=== PATIENT | male | born 1940 | race Caucasian/White ===

== ENCOUNTER → 2017-12-04 12:47 | Outpatient (CLI) | payer MEDICARE, SELFPAY ==
--- NOTE | 2017-12-04 12:52 | CT_ITS ---
STUDY: CT CHEST WITHOUT CONTRAST REASON FOR EXAM: Male, 77 years old. Lung nodule follow-up. History of prostate cancer, hypertension, diabetes, left nephrectomy. RADIATION DOSAGE (If Supplied By Facility): CTDIvol = ( 18.70 ) mGy, DLP = ( 691.51 ) mGycm TECHNIQUE: Transaxial imaging was performed without the administration of intravenous contrast material. Coronal and sagittal 2-D MPR Individualized dose optimization techniques were used for this CT. COMPARISON: 05/14/2016 CT chest FINDINGS: Supraclavicular: No acute process. Body wall soft tissues: No acute process. Upper abdomen: No acute process. Osseous structures: No acute process. Osteopenia, mild kyphoscoliosis and mild thoracic spondylosis. Mediastinum: No acute process. Heart: Normal heart size without effusion. Epicardial lipomatosis. Subendocardial fibrofatty scar of the anterior, and lateral warren of the left ventricle basilar to apex, consistent with old infarct. Three-vessel coronary atherosclerosis. 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 Unchanged compared to prior imaging of September 2015. Lungs: There is mild generalized hyperlucency without reilly features of centrilobular or paraseptal emphysema. On the left there are several pulmonary nodules, one of which contains a small keila of calcium in the basilar segment of the lower lobe, measuring 4.5 mm and consistent with old granulomas disease. The remainder of the nodules are solid or groundglass in density, the largest of these measuring 6 mm, 5 mm. On the right there is a part solid pulmonary nodule right lower lobe lateral basilar measuring 6.5 mm. Another right lower lobe posterior basilar in the sulcus measuring 12 mm, part solid. Right middle lobe subpleural measuring 9.3 mm. A few scattered tiny groundglass nodules are also present. There is no significant change in the pattern of pulmonary nodules compared to prior imaging of 09/28/2015. CT/Chest without Contrast IMPRESSION: Stable pattern of pulmonary nodules since prior imaging of September 2015. 2 years demonstrated stability without development of suspicious features. No specific further surveillance imaging is required. Please reference the 2017 Fleischner Society Criteria for follow-up of pulmonary nodules. Prominent coronary atherosclerosis, with aneurysmal ectasia of the RCA, stable compared to September 2015. Electronically Signed: Todd Castellanos, at 12:24 EDT Tel , Service support ,
== END ==
PROVIDERS: Family Provider Family Medicine; PCP Family Medicine; Visit Provider Family Medicine
DX: R91.1 Solitary pulmonary nodule (principal)
CPT/HCPCS: 71250

== ENCOUNTER 2017-12-16 13:50 | Outpatient (RCR) | payer MEDICARE, SELFPAY | END 2017-12-22 23:59 | LOC: DC 13:50 | PROVIDERS: Family Provider Family Medicine; PCP Family Medicine; Visit Provider Family Medicine | DX: E11.9 Type 2 diabetes mellitus without complications (principal); Z71.3 Dietary counseling and surveillance | CPT/HCPCS: G0108 ==

== ENCOUNTER 2018-01-19 09:30 | Outpatient (RCR) | payer MEDICARE, SELFPAY | END 2018-01-22 23:59 | LOC: DC 09:30 | PROVIDERS: Family Provider Family Medicine; PCP Family Medicine; Visit Provider Family Medicine | DX: E11.9 Type 2 diabetes mellitus without complications (principal); Z71.3 Dietary counseling and surveillance | CPT/HCPCS: 97802; 97803 ==

== ENCOUNTER 2018-02-08 11:00 | Outpatient (RCR) | payer MEDICARE, SELFPAY | END 2018-02-21 23:59 | LOC: DC 11:00 | PROVIDERS: Family Provider Family Medicine; PCP Family Medicine; Visit Provider Family Medicine | DX: E11.9 Type 2 diabetes mellitus without complications (principal); Z71.3 Dietary counseling and surveillance ==

== ENCOUNTER 2018-03-02 09:00 | Outpatient (RCR) | payer MEDICARE, SELFPAY | END 2018-03-24 23:59 | LOC: DC 09:00 | PROVIDERS: Family Provider Family Medicine; PCP Family Medicine; Visit Provider Family Medicine | DX: E11.9 Type 2 diabetes mellitus without complications (principal); Z71.3 Dietary counseling and surveillance | CPT/HCPCS: 97803 ==

== ENCOUNTER 2018-03-31 09:22 | Outpatient (RCR) | payer MEDICARE, SELFPAY | END 2018-04-23 23:59 | LOC: DC 09:22 | PROVIDERS: Family Provider Family Medicine; PCP Family Medicine; Visit Provider Family Medicine | DX: E11.9 Type 2 diabetes mellitus without complications (principal); Z71.3 Dietary counseling and surveillance | CPT/HCPCS: G0109 ==

== ENCOUNTER 2018-06-03 16:53 | Outpatient (RCR) | payer MEDICARE, SELFPAY | END 2018-06-24 23:59 | LOC: DC 16:53 | PROVIDERS: Family Provider Family Medicine; PCP Family Medicine; Visit Provider Family Medicine | DX: E11.9 Type 2 diabetes mellitus without complications (principal); Z71.3 Dietary counseling and surveillance | CPT/HCPCS: G0109 ==

== ENCOUNTER 2018-07-07 12:14 | Outpatient (RCR) | payer MEDICARE, SELFPAY | END 2018-07-07 23:59 | disposition home or self-care (01) | LOC: DC 12:14 | PROVIDERS: Family Provider Family Medicine; PCP Family Medicine; Visit Provider Family Medicine | DX: E11.9 Type 2 diabetes mellitus without complications (principal); Z71.3 Dietary counseling and surveillance | CPT/HCPCS: G0109 ==

== ENCOUNTER → 2019-06-13 15:43 | Outpatient (CLI) | payer MEDICARE, SELFPAY ==
[2019-06-03 10:31] VITALS: BMI 32.1
--- NOTE | 2019-06-13 15:44 | CT_ITS ---
STUDY: CT CHEST WITHOUT CONTRAST REASON FOR EXAM: Male, 79 years old. Right lower lobe nodule. Recent elevation in PSA. RADIATION DOSAGE (If Supplied By Facility): CTDIvol = ( 15.80 ) mGy, DLP = ( 521.02 ) mGycm TECHNIQUE: Transaxial imaging was performed without the administration of intravenous contrast material. Multiplanar coronal and sagittal images were reformatted. Individualized dose optimization techniques were used for this CT. COMPARISON: November 04, 2017. FINDINGS: The lungs are well-expanded. There is a nodule in the periphery of the right lower lobe measuring 0.6 x 0.7 x 0.6 cm which has a central lucency. This correlates with the nodule seen on the prior study. There is a second small nodule with central lucency along the pleural surface in the right middle lobe measuring 0.6 x 0.4 cm. Both appear unchanged from the prior study. Slightly lower in the right lower lobe is a 1.4 x 1.1 x 1.2 cm nodule with 2 areas of lucency. This again appears similar in size to prior study. There are no new masses. There are linear high density foci in the right middle lobe unchanged from prior study. There is no demonstrated pleural abnormality. Normal heart and pericardium. There are calcifications of the coronary arteries. 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 Normal mediastinum. Normal hilar regions. Normal unenhanced pulmonary arteries. Normal aorta arch and descending thoracic aorta. There are multi-level degenerative changes of the thoracic spine. There is no demonstrated abnormality of the visualized upper abdomen. CT/Chest without Contrast IMPRESSION: 1. Stable pattern of pulmonary nodules without increased in size. 2. No new findings are compared to prior study. Electronically Signed: Jose Aquino DO at 22:48 EST Tel [phone], Service support ,
== END ==
PROVIDERS: PCP Family Medicine; Referring Provider Internal Medicine Critical Care Medicine; Visit Provider Internal Medicine Critical Care Medicine
DX: R97.20 Elevated prostate specific antigen [PSA] (principal); R91.1 Solitary pulmonary nodule
CPT/HCPCS: 71250

== ENCOUNTER → 2019-06-23 08:47 | Outpatient (CLI) | payer MEDICARE, SELFPAY ==
[2019-06-03 10:31] VITALS: BMI 32.1
--- NOTE | 2019-06-24 10:30 | PFT ---
INTRODUCTION: The patient is a 79-year-old male that presents for pulmonary function studies secondary to a diagnosis of dyspnea. Respiratory therapy reports good patient effort. Bronchodilators were used during testing. INTERPRETATION: Forced expiration spirometry demonstrates no evidence of a large airways obstructive ventilatory defect. There was no significant response to aerosolized bronchodilators, based upon strict ATS criteria. Spirograms are of fair quality and plateau gradually indicating slow emptying of the lungs. Body plethysmography was performed and reveals lung volumes to be within normal limits. Diffusing capacity by single breath CO is also within normal limits. IMPRESSION: Normal spirometry, lung volumes and diffusing capacity.
== END ==
PROVIDERS: Family Provider Family Medicine; PCP Family Medicine; Referring Provider Internal Medicine Critical Care Medicine; Visit Provider Internal Medicine Critical Care Medicine
DX: R06.09 Other forms of dyspnea (principal)
CPT/HCPCS: 94060; 94726; 94729

== ENCOUNTER → 2020-01-02 09:14 | Outpatient (CLI) | payer MEDICARE, SELFPAY ==
[2019-08-02 08:32] VITALS: BMI 29.4
[2020-01-02 13:10] LABS: Vitamin B12 342 pg/mL (211-911)
[2020-01-02 13:21] LABS: ALB/GLOB Ratio 1.3 RATIO (0.9-2.4); AST(SGOT) 20 U/L (15-37); Alanine Aminotransfer ALT/SGPT 28 U/L (16-61); Albumin, Serum 4.1 g/dL (3.2-5.0); Alkaline Phosphatase 74 U/L (45-117); Anion Gap 4 (5-15); BUN 19 mg/dL (7-18); BUN/Creat Ratio 12.4 RATIO (10-20); Calcium,Total 10.5 mg/dL (8.5-10.1); Chloride 108 mmol/L (98-107); Cholesterol 150 mg/dL (200); Creatinine, Serum 1.53 mg/dL (0.70-1.30); EST Glomerular Filtration Rate 47 mL/min (>60); Est Glom Filt Rate - Afr Amer 57 mL/min (>60); Globulin 3.2 g/dL (2.2-4.2); Glucose 110 mg/dL (74-106); High Density Lipoprotein 44 mg/dL; Potassium 4.7 mmol/L (3.5-5.1); Protein, Total 7.3 g/dL (6.4-8.2); Sodium Level 140 mmol/L (136-145); Thyroid Stim Hormone (TSH) 1.86 uIU/mL (0.358-3.74); Triglycerides 131 mg/dL; Very Low Density Lipoprotein 26 mg/dL (5-40)
== END ==
PROVIDERS: PCP Family Medicine; Visit Provider Family Medicine
DX: E11.9 Type 2 diabetes mellitus without complications (principal)
CPT/HCPCS: 36415; 80053; 80061; 82607; 84403; 84443

== ENCOUNTER → 2020-11-22 10:08 | Outpatient (CLI) | payer MEDICARE, SELFPAY ==
[2019-08-02 08:32] VITALS: BMI 29.4
--- NOTE | 2020-11-22 10:11 | NM_ITS ---
CLINICAL: 80-year-old male with reported history of carcinoma of the prostate with elevation of the serum PSA level. WHOLE BODY 99m Tc MDP RADIONUCLIDE BONE SCINTIGRAPHY COMPARISON: None available FINDINGS: Following the intravenous administration of 26.1 mCi of 99m Tc MDP, whole body bone images reveal: 1. Increased radiopharmaceutical concentration is defined in the left proximal femur-left femoral neck. 2. Facilitated uptake is observed in the patellofemoral compartments of both knees, right posterior sacrum, first thoracic vertebra posteriorly on the left, the fourth and ninth thoracic vertebra posteriorly on the right. 3. The remaining skeletal structures are scintigraphically unremarkable with the right kidney and urinary bladder activity identified. The left kidney appears scintigraphically absent. NM/Bone Scan Whole Body IMPRESSION: 1. The increase in radiopharmaceutical concentration identified in the left proximal femur-femoral neck may represent trauma-fracture. Plain film radiography correlation is recommended. 2. Degenerative arthritis appears expressed in the bilateral knees, thoracic spine, right posterior sacrum. 3. There is no definitive typical scintigraphic evidence of multifocal axial skeletal metastatic disease. Electronically Signed: Todd Bhagat DO at 23:05 EDT Tel , Service support ,
== END ==
PROVIDERS: PCP Family Medicine; Referring Provider Radiology Radiation Oncology; Visit Provider Radiology Radiation Oncology
DX: R97.20 Elevated prostate specific antigen [PSA] (principal); Z85.46 Personal history of malignant neoplasm of prostate
CPT/HCPCS: 78306; A9503

== ENCOUNTER → 2020-11-27 11:37 | Outpatient (CLI) | payer MEDICARE, SELFPAY ==
[2019-08-02 08:32] VITALS: BMI 29.4
--- NOTE | 2020-11-27 11:44 | RAD_ITS ---
STUDY: X-RAY - LEFT FEMUR REASON FOR STUDY: Male, 80 years old. ABNORMAL bone scan FINDINGS TECHNIQUE: 4 view(s) of the femur. COMPARISON: None. FINDINGS: Normal visualized femur. Nondisplaced transverse fracture of the patella. 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 Clinical correlation is recommended. Metallic radiation seeds are seen within the prostate. 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 Electronically Signed: Magdaleno Lo MD at 15:41 EDT , Service support ,
== END ==
PROVIDERS: PCP Family Medicine; Referring Provider Radiology Radiation Oncology; Visit Provider Radiology Radiation Oncology
DX: R93.6 Abnormal findings on diagnostic imaging of limbs (principal); Z85.46 Personal history of malignant neoplasm of prostate
CPT/HCPCS: 73552

== ENCOUNTER → 2021-01-22 13:52 | Outpatient (CLI) | payer MEDICARE, SELFPAY ==
--- NOTE | 2021-01-22 13:30 | PET_ITS ---
EXAMINATION: 18F Fluciclovine PET/CT CLINICAL HISTORY: A 80-year-old male with reported history of carcinoma of the prostate presenting for restaging examination. COMPARISON EXAMINATION: Whole body bone scintigraphy report dated 11/22/20 PROCEDURE: The patient received an intravenous bolus injection of 10.54 mCi of Axumin (fluciclovine F-18) via the right hand, on the imaging table with the patient in the supine position followed by an intravenous normal saline flush. The patient in the supine position with arms above the head, CT scan for attenuation correction was performed immediately following the bolus injection and left up for 1-2 minutes. The PET scan acquisition was begun within 3-5 minutes following injection from mid thigh to the base of the skull. The total scan time was registered between 20-30 minutes. Axumin (fluciclovine F-18) injection is indicated for positron emission tomography PET imaging in men with suspected prostate cancer recurrence based on elevation of the serum prostatic surface antigen (PSA) levels following prior treatment intervention. HEIGHT: 70 inches. WEIGHT: 177 lbs. LIVER BLOOD POOL SUV: 7.9 BLOOD POOL: 1.0 BONE MARROW: 1.9 INDEX LESION SIZE SUV INTERPRETATION Right hemipelvis soft tissue nodule 34.7-mm (frame 65) 3.6 > bone marrow ref. Fulfills quantitative criteria for viable neoplasm FINDINGS: Head/Neck: There is no evidence of abnormal increased radiopharmaceutical concentration within the cranial vault. Symmetric uptake is defined in the bilateral parotid space. CHEST: There is no evidence of abnormal increased 18F fluciclovine uptake within the context of the right and left hemithorax pulmonary parenchyma, mediastinal structures. Pertinent chest CT findings are as follows. Coronary arterial calcification is observed. Atherosclerotic calcification is noted in the thoracic aorta. The maximal axial diameter of the ascending thoracic aorta is 43.5-mm. Subcentimeter bilateral axillary and scattered mediastinal soft tissue densities are ametabolic. The cavitated density observed in the right lower posteromedial lung field reveals no evidence of increased tracer uptake. Abdomen/Pelvis: A nodular focus of increased radiopharmaceutical concentration is observed in the right lower posterior pelvic mesentery corresponding to soft tissue nodule-mass formation on review of CT of the pelvis dated 01/22/21. The calculated maximal standard uptake value is 3.6, greater than bone marrow reference. The maximal axial diameter of the corresponding metabolic, morphologic abnormality on review of CT of the pelvis dated 01/22/21 is 34.7-mm (transverse). Normal physiologic distribution of the radiopharmaceutical is apparent in the hepatic and splenic parenchyma, uncinate process-pancreatic head-tail, right renal unit, and visualized intestinal tract. Review of CT of the abdomen pelvis demonstrates the following. There is atherosclerotic calcification defined in the abdominal aorta without evidence of dilatation-aneurysm formation. Pelvic arterial calcification is observed. Cholelithiasis is encountered. The left kidney is metabolically, morphologically absent. Surgical clips appear evident in the region of the left renal bed. Seed placement is defined in the lower pelvis-prostate bed without evidence of quantitatively significant increased radiopharmaceutical concentration. A fat containing left inguinal hernia is noted. Right and left inguinal soft tissue densities with fatty hilus demonstrate no evidence of quantitatively significant increased tracer uptake. Skeletal: Degenerative changes are noted in the cervical, thoracic and lumbar spine without evidence of increased radiopharmaceutical concentration. There is no evidence of sclerotic, mixed sclerotic-lytic and/or lytic changes noted on review of the skeletal structures without evidence of increased radiopharmaceutical concentration. PET/PET/CT Tumor Base -Thigh Subs IMPRESSION: 1. 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 2. Increased 18F fluciclovine uptake observed in the right hemipelvic mesentery corresponding to a soft tissue nodule is consistent with viable neoplasia. (Marco et al, Journal of Nuclear Medicine 55:1986, 2014). Electronic Signature Todd Bhagat D.O. Electronically Signed: Todd Bhagat DO at 22:21 EDT Tel , Service support ,
== END ==
PROVIDERS: PCP Family Medicine; Referring Provider Radiology Radiation Oncology; Visit Provider Radiology Radiation Oncology
DX: C61 Malignant neoplasm of prostate (principal); R97.20 Elevated prostate specific antigen [PSA]
CPT/HCPCS: 78815; A9588

== ENCOUNTER → 2021-02-08 11:08 | Outpatient (CLI) | payer MEDICARE, SELFPAY ==
[2021-02-08 12:14] LABS: Absolute Lymphocyte Count 1.93 X10^3/uL (0.83-4.51); Absolute Neutrophil Count 5.6 X10^3/uL (2.0-7.7); Basophil# 0.03 X10^3/uL; Basophil% 0.4 % (0-1); Eosinophil# 0.11 X10^3/uL; Eosinophils% 1.3 % (0-5); Hematocrit 49.7 % (40-54); Hemoglobin 15.8 g/dL (13.0-16.5); Lymphocyte # 1.93 X10^3/ul (0.83-4.51); Lymphocyte % 22.7 % (19-41); Mean Corp Hgb Conc 31.8 g/dL (32-36); Mean Corpuscular Hgb 29.1 pg (27.0-32.0); Mean Corpuscular Volume 91.5 fL (80-94); Mean Platelet Vol. 11.5 fl (6.2-12.0); Monocyte# 0.78 X10^3/uL; Monocyte% 9.2 % (0-10); NRBC Flagged by Analyzer 0 % (0-5); Neutrophil # 5.62 X10^3/uL (2.7-7.7); Neutrophil % 65.9 % (47-70); Platelet Count 190 K/mm3 (150-450); RBC Distribution Width CV 15.1 % (11.6-14.6); RBC Distribution Width SD 50.4 fl (35.1-43.9); Red Blood Count 5.43 M/mm3 (4.6-6.2); White Blood Count 8.5 K/mm3 (4.4-11.0)
[2021-02-08 12:27] LABS: Creatinine, Serum 1.17 mg/dL (0.70-1.30); EST Glomerular Filtration Rate 64 mL/min (>60); Est Glom Filt Rate - Afr Amer 77 mL/min (>60)
== END ==
PROVIDERS: PCP Family Medicine; Referring Provider Radiology Radiation Oncology; Visit Provider Radiology Radiation Oncology
DX: Z85.46 Personal history of malignant neoplasm of prostate (principal)
CPT/HCPCS: 36415; 82565; 85025

== ENCOUNTER → 2021-02-11 14:22 | Outpatient (CLI) | payer MEDICARE, SELFPAY ==
--- NOTE | 2021-02-11 14:35 | CT_ITS ---
HISTORY: PROSTATE CA. TECHNIQUE: Helically acquired images were obtained of the pelvis. A radiation dose optimization technique was used for this scan. IV Contrast dosage and agent: None. Oral contrast: Present. # of images incl. paperwork: [phone]. COMPARISON: PET/CT 01/22/2021. FINDINGS: BOWEL: Appendix nondilated. Oral contrast noted in the small bowel. PERITONEUM: No significant free fluid. Aortoiliac surgical clips again noted. PELVIC ORGANS: 2.8 x 3.1 cm slightly lobulated and irregular mass in the right posterolateral pelvic mesentery contiguous with the right seminal vesicle again seen. Prostate radiotherapy seeds noted. BONES: Degenerative changes. No destructive osseous lesion. CT/CT Pelvis w/o Cont/Therapy IMPRESSION: CT pelvis for treatment planning. Redemonstration of right pelvic soft tissue mass. Individualized dose optimization techniques were used for this CT. at 1142 Reported and signed by: Brianne Woods MD Electronically Signed: Brianne Woods MD at 11:40 EDT Tel , Service support ,
== END ==
PROVIDERS: PCP Family Medicine; Referring Provider Radiology Radiation Oncology; Visit Provider Radiology Radiation Oncology
DX: C61 Malignant neoplasm of prostate (principal); C77.5 Secondary and unspecified malignant neoplasm of intrapelvic lymph nodes
CPT/HCPCS: 51600; 72192

== ENCOUNTER → 2021-05-06 07:01 | Outpatient (CLI) | payer MEDICARE, SELFPAY ==
[2021-05-06 10:41] LABS: PSA,Total- Diagnostic 0.12 ng/mL (0.0-4.0)
[2021-05-06 10:45] LABS: AST(SGOT) 21 U/L (15-37); Alanine Aminotransfer ALT/SGPT 33 U/L (16-61); Albumin, Serum 3.5 g/dL (3.2-5.0); Alkaline Phosphatase 96 U/L (45-117); Anion Gap 8 (5-15); BUN 16 mg/dL (7-18); Calcium,Total 9.9 mg/dL (8.5-10.1); Chloride 104 mmol/L (98-107); Cholesterol 208 mg/dL (200); Creatinine, Serum 1.23 mg/dL (0.70-1.30); EST Glomerular Filtration Rate 60 mL/min (>60); Est Glom Filt Rate - Afr Amer 73 mL/min (>60); Globulin 3.5 g/dL (2.2-4.2); Glucose 156 mg/dL (74-106); High Density Lipoprotein 44 mg/dL; Potassium 4.2 mmol/L (3.5-5.1); Sodium Level 140 mmol/L (136-145); Thyroid Stim Hormone (TSH) 3.08 uIU/mL (0.358-3.74); Triglycerides 444 mg/dL
[2021-05-06 10:48] LABS: Vitamin B12 987 pg/mL (211-911); Vitamin D,25 Hydroxy 40.1 ng/mL
== END ==
PROVIDERS: PCP Family Medicine; Referring Provider Urology; Visit Provider Urology
DX: C61 Malignant neoplasm of prostate (principal); E55.9 Vitamin D deficiency, unspecified; E11.9 Type 2 diabetes mellitus without complications
CPT/HCPCS: 36415; 80053; 80061; 82306; 82607; 84153; 84443

== ENCOUNTER → 2021-10-24 | Outpatient (CLI) | payer MEDICARE, SELFPAY ==
[2021-10-24 15:53] LABS: PSA,Total- Diagnostic 0.02 ng/mL (0.0-4.0)
== END | disposition home or self-care (01) ==
LOC: BIMLAB 13:30
PROVIDERS: PCP Family Medicine; Visit Provider Urology
DX: C61 Malignant neoplasm of prostate (principal)
CPT/HCPCS: 36415; 84153

== ENCOUNTER → 2021-11-07 | Outpatient (CLI) | payer MEDICARE, SELFPAY | END | disposition home or self-care (01) | LOC: LABSPEC 16:30 | PROVIDERS: PCP Family Medicine; Visit Provider Urology | DX: N30.00 Acute cystitis without hematuria (principal) | CPT/HCPCS: 87077; 87086; 87088; 87186 ==

== ENCOUNTER → 2022-04-28 | Outpatient (CLI) | payer MEDICARE, SELFPAY ==
[2022-04-28 13:03] LABS: Vitamin B12 718 pg/mL (211-911); Vitamin D,25 Hydroxy 45.9 ng/mL
[2022-04-28 13:09] LABS: ALB/GLOB Ratio 1.2 RATIO (0.9-2.4); AST(SGOT) 13 U/L (15-37); Alanine Aminotransfer ALT/SGPT 23 U/L (16-61); Albumin, Serum 3.8 g/dL (3.2-5.0); Alkaline Phosphatase 87 U/L (45-117); Anion Gap 8 (5-15); BUN 15 mg/dL (7-18); BUN/Creat Ratio 12.1 RATIO (10-20); Chloride 106 mmol/L (98-107); Cholesterol 182 mg/dL (200); Creatinine, Serum 1.24 mg/dL (0.70-1.30); EST Glomerular Filtration Rate 60 mL/min (>60); Est Glom Filt Rate - Afr Amer 72 mL/min (>60); Globulin 3.2 g/dL (2.2-4.2); Glucose 126 mg/dL (74-106); High Density Lipoprotein 47 mg/dL; PSA,Total- Diagnostic 0.11 ng/mL (0.0-4.0); Potassium 3.7 mmol/L (3.5-5.1); Sodium Level 141 mmol/L (136-145); Thyroid Stim Hormone (TSH) 2.81 uIU/mL (0.358-3.74); Triglycerides 280 mg/dL; Very Low Density Lipoprotein 56 mg/dL (5-40)
== END | disposition home or self-care (01) ==
LOC: BIMLAB 10:19
PROVIDERS: PCP Family Medicine; Referring Provider Urology; Visit Provider Urology
DX: C61 Malignant neoplasm of prostate (principal); E11.9 Type 2 diabetes mellitus without complications; E55.9 Vitamin D deficiency, unspecified
CPT/HCPCS: 80053; 80061; 82306; 82607; 84153; 84443

== ENCOUNTER → 2022-05-12 | Outpatient (CLI) | payer MEDICARE, SELFPAY ==
[2022-05-12 16:18] LABS: Mucous, Urine 0 SEEN /hpf (<or=2+); Squamous Epithelial Cells - UA 0 SEEN /hpf (0-5)
[2022-05-12 17:08] LABS: Color, Urine Amber (Yellow); Glucose, Dipstick Normal (Normal); Ketone-Dipstick Negative (Negative); Leukocyte Esterase-Dipstick 100 /ul (Negative); Nitrite-Dipstick Negative (Negative); Occult Blood-Urine 250 /ul (Negative); Protein-Dipstick 500 mg/dl (Negative); Specific Gravity, Urine 1.015 (1.002-1.030); Urine Bilirubin Dipstick Negative (Negative); Urine Clarity Cloudy (Clear); Urine Urobilinogen 1 mg/dl (Normal)
[2022-05-12 17:35] LABS: Red Blood Cells-Urine > 100 SEEN /hpf (0-5)
[2022-05-12 17:36] LABS: Bacteria RARE /hpf (None Seen); White Blood Cells 10-25 SEEN /hpf (0-5)
== END | disposition home or self-care (01) ==
LOC: LABSPEC 16:07
PROVIDERS: PCP Family Medicine; Visit Provider Family Medicine
DX: N39.0 Urinary tract infection, site not specified (principal)
CPT/HCPCS: 81001; 87086; 87088

== ENCOUNTER → 2022-05-30 | Outpatient (CLI) | payer MEDICARE, SELFPAY ==
--- NOTE | 2022-05-30 13:53 | CT_ITS ---
STUDY: CT ABDOMEN AND PELVIS WITHOUT CONTRAST REASON FOR EXAM: Male, 82 years old. Hematuria. History of prostate cancer. Prior left nephrectomy. RADIATION DOSAGE (If Supplied By Facility): CTDIvol = ( 14.32 ) mGy, DLP = ( 653.66 ) mGycm TECHNIQUE: Transaxial images were obtained from the dome of the diaphragm to the symphysis pubis without oral contrast, and without intravenous contrast. Sagittal and coronal images were reconstructed. Individualized dose optimization techniques were used for this CT. COMPARISON: Comparison is made with prior CT scan the pelvis dated 02/11/2021. FINDINGS: Minimal increased markings at the right lung base suggestive of either linear atelectasis and/or scarring. Coronary artery calcification. There is a 4.17 x 4.5 cm subtle rounded hypodense mass in the anterior aspect of the right lobe of the liver. A neoplastic process should be ruled out. There are multiple small gallstones. Normal spleen. Normal pancreas. Normal bilateral adrenal glands. 1 cm cyst is seen in the lower pole of the right kidney. The patient is status post left nephrectomy. Normal visualized stomach. Normal small intestine. Normal colon. The appendix is visualized and appears normal. There is diffuse atherosclerotic calcification of the abdominal aorta and its major visceral branches, without a demonstrated aneurysm. There is evidence of prior surgical repair of the distal abdominal aorta and possible grafting. Normal inferior vena cava. Normal retroperitoneum. The bladder is contracted with mild degree of the bladder wall thickening. Metallic radiation seeds are seen within the prostate. The previously seen soft tissue mass in the right posterior-lateral pelvic mesentery has decreased in size. It presently measures 1.8 cm by Donnelly. Normal abdominal wall. There are mild degenerative changes of the visualized lumbar spine. CT/Abdomen/Pelvis without Cont IMPRESSION: 4.1 cm by 4.5 cm rounded hypodense mass anterior aspect of right lobe of liver. A neoplastic process should BE ruled out. Small gallstones. Radiation seeds are seen within the prostate. Electronically Signed: Magdaleno Lo MD at 15:12 EST ,
== END | disposition home or self-care (01) ==
PROVIDERS: PCP Family Medicine; Visit Provider Family Medicine
DX: K80.20 Calculus of gallbladder without cholecystitis without obstruction (principal); I70.0 Atherosclerosis of aorta; Z90.5 Acquired absence of kidney; R19.00 Intra-abdominal and pelvic swelling, mass and lump, unspecified site; R16.0 Hepatomegaly, not elsewhere classified; I25.10 Atherosclerotic heart disease of native coronary artery without angina pectoris; N28.1 Cyst of kidney, acquired; R93.41 Abnormal radiologic findings on diagnostic imaging of renal pelvis, ureter, or bladder; R31.9 Hematuria, unspecified
CPT/HCPCS: 74176

== ENCOUNTER → 2022-06-26 | Outpatient (CLI) | payer MEDICARE, SELFPAY ==
[2022-06-26] VITALS (10 sets, daily range): BP systolic 116–161; BP diastolic 69–102; PULSE 54–64; RESP 11–21; TEMP 36.2; O2SAT 93–100; BMI 25.2
--- NOTE | 2022-06-26 | ASPIGT_PTH ---
PATIENT: ROSALBA WASHINGTON LOC: CT U#:[id number] AGE/SX: 82/M ROOM: RE06/26/[address]: Dr. Anmol Velazquez MD : 1940 BED: DIS: 06/26/2022 SPEC #: [id number] RECD: 06/26/22 11:10 STATUS: [place] #: [id number] OLENA: 06/26/22 00:[address]: Anmol Velazquez DEPT: SURGICAL PATHOLOGY RECD BY: Shaheen Mcintyre Tissues: Liver, NOS Procedures: PAS with Diastase (control) FNA Specimen Adequacy Trichrome (control) Special Stain Group II PAS Stain (control) Surgery Specimen Level V Retic (control) Iron Stain (control) Imprint (control) HEADER OPERATION: Liver mass, CT-guided biopsy PRE-OP DIAGNOSIS: Liver mass TISSUE SUBMITTED: Right lobe medial liver 18-gauge core x8 MICROSCOPIC DIAGNOSIS Right lobe liver, medial, CT-guided core biopsy: Liver parenchymal tissue, negative for malignancy. See comment. SJ:ramya 06/27/2022 COMMENT The specimen is evaluated at the time of biopsy by Dr. Messer. Immediate Evaluation: Set 1 (two touch imprints) - Hepatocytes noted, negative for malignant cells. Set 2 (two touch imprints) - Hepatocytes noted, negative for malignant cells. The specimen shows liver parenchymal tissue with focal area of hemorrhage, dilated sinusoids, glycogenation of nuclei and portal chronic inflammation. Correlation with clinical, radiologic findings and appropriate follow up are necessary. Case has been reviewed in consultation with Dr. Long who concurs with the above diagnosis. IDC:AM MICROSCOPIC DESCRIPTION Slides are reviewed. Reticulin stain show normal hepatic architecture. Iron stain shows absent iron. PAS and PASD stain do not show any abnormal accumulation of protein. Trichrome stain does not show any significant portal or periportal fibrosis. All stains are performed with appropriate matched controls. GROSS DESCRIPTION Received in fixative is one container labeled with the patient's name and designated liver, CT-guided core biopsy. The specimen consists of multiple elongated fragments of claros soft tissue that in aggregate measure 2.5 x 0.6 x 0.1 cm. The specimen is totally submitted in one cassette. Four touch imprints are prepared at the time of core biopsy. / ANNE:ramya 06/26/2022 TC:5 CPT: 03946, [id number], [id number], [id number] x5
--- NOTE | 2022-06-26 07:34 | CT_ITS ---
PROCEDURE: CT DIRECTED CORE LIVER BIOPSY INDICATION: Male, 82 years old. LIVER MASS PHYSICIAN: Dr. THIEN Martin CONSENT: Written informed consent was obtained having explained the risks, benefits and alternatives in detail with the patient who accepted the risks and agreed to proceed. Laboratory review and clinical assessment was performed. CONSCIOUS SEDATION PROTOCOL: The Drugs used were: 2 mg Versed, IV. The sedation time was: 20 minutes. Conscious sedation was started at 9:01 AM and terminated at 9:21 AM. The conscious sedation protocol was independently monitored by the department nurse. RADIATION DOSAGE (If Supplied By Facility): CTDIvol = ( 25 ) mGy, DLP = ( 715.26 ) mGycm Individualized dose optimization techniques were used for this CT. TECHNIQUE: Using CT image guidance with image documentation, a suitable location in the medial aspect of the right lobe of the liver was identified. Using an anterior approach, puncture of the liver was uneventful with an 18-gauge core needle system. 8, 18-gauge core samples were obtained, and submitted in formalin to the pathologist for further assessment. Followup CT scan revealed no distinct sequelae. CT/Biopsy/Inj or Needle Placement IMPRESSION: 1. CT directed core needle biopsy of the liver, using CT image guidance with image documentation as described. 2. Conscious Sedation protocol utilized with independent monitoring. Electronically Signed: Magdaleno Lo MD at 9:42 EST ,
[2022-06-26 08:21] LABS: Hematocrit 46.8 % (40-54); Hemoglobin 15.4 g/dL (13.0-16.5); Mean Corp Hgb Conc 32.9 g/dL (32-36); Mean Corpuscular Hgb 30.7 pg (27.0-32.0); Mean Corpuscular Volume 93.4 fL (80-94); Mean Platelet Vol. 11.1 fl (6.2-12.0); Platelet Count 180 K/mm3 (150-450); RBC Distribution Width CV 13.8 % (11.6-14.6); RBC Distribution Width SD 47.1 fl (35.1-43.9); Red Blood Count 5.01 M/mm3 (4.6-6.2); White Blood Count 6.7 K/mm3 (4.4-11.0)
[2022-06-26 08:34] LABS: International Normalized Ratio 1.1; Prothrombin Time (Protime)PT. 13.8 SECONDS (11.7-14.9)
[2022-06-26 08:35] LABS: Partial Thromboplast Time 28.5 Seconds (24.1-36.2)
[2022-06-26] MEDS: Midazolam 2 MG/2 ML Syringe IV (09:01)
[2022-06-26] MEDS: Lidocaine 2% (20 ml mdv) 20 ML Vial INFILT (09:12)
== END | disposition home or self-care (01) ==
PROVIDERS: PCP Family Medicine; Referring Provider Family Medicine; Visit Provider Family Medicine
DX: R16.0 Hepatomegaly, not elsewhere classified (principal)
CPT/HCPCS: 47000; 36415; 77012; 85027; 85610; 85730; 88172; 88305; 88307; 88313; 99156; J7050; A4216

== ENCOUNTER → 2022-09-05 | Outpatient (CLI) | payer MEDICARE, SELFPAY ==
[2022-09-05 13:24] LABS: Color, Urine Yellow (Yellow); Glucose, Dipstick Normal (Normal); Ketone-Dipstick Negative (Negative); Leukocyte Esterase-Dipstick 500 /ul (Negative); Nitrite-Dipstick Positive (Negative); Occult Blood-Urine 250 /ul (Negative); Protein-Dipstick 100 mg/dl (Negative); Urine Bilirubin Dipstick Negative (Negative); Urine Clarity Sl. Cloudy (Clear); Urine Urobilinogen Normal (Normal)
== END | disposition home or self-care (01) ==
LOC: LABSPEC 12:43
PROVIDERS: PCP Family Medicine; Referring Provider Family Medicine; Visit Provider Family Medicine
DX: N39.0 Urinary tract infection, site not specified (principal)
CPT/HCPCS: 81002; 87077; 87086; 87088; 87186

== ENCOUNTER → 2022-11-05 | Outpatient (CLI) | payer MEDICARE, SELFPAY ==
[2022-11-05 12:36] LABS: PSA,Total- Diagnostic 0.97 ng/mL (0.0-4.0)
== END | disposition home or self-care (01) ==
PROVIDERS: PCP Family Medicine; Referring Provider Urology; Visit Provider Urology
DX: C61 Malignant neoplasm of prostate (principal)
CPT/HCPCS: 36415; 84153

== ENCOUNTER → 2023-01-01 | Outpatient (CLI) | payer MEDICARE, SELFPAY ==
[2023-01-01 10:02] LABS: Absolute Lymphocyte Count 1.59 X10^3/uL (0.83-4.51); Absolute Neutrophil Count 3.8 X10^3/uL (2.0-7.7); Basophil# 0.03 X10^3/uL; Basophil% 0.5 % (0-1); Eosinophil# 0.11 X10^3/uL; Eosinophils% 1.8 % (0-5); Hematocrit 46.6 % (40-54); Hemoglobin 14.8 g/dL (13.0-16.5); Lymphocyte # 1.59 X10^3/ul (0.83-4.51); Lymphocyte % 25.4 % (19-41); Mean Corp Hgb Conc 31.8 g/dL (32-36); Mean Corpuscular Hgb 29.8 pg (27.0-32.0); Mean Corpuscular Volume 93.8 fL (80-94); Mean Platelet Vol. 11.7 fl (6.2-12.0); Monocyte# 0.65 X10^3/uL; Monocyte% 10.4 % (0-10); NRBC Flagged by Analyzer 0 % (0-5); Neutrophil # 3.84 X10^3/uL (2.7-7.7); Neutrophil % 61.4 % (47-70); Platelet Count 157 K/mm3 (150-450); RBC Distribution Width CV 14.6 % (11.6-14.6); RBC Distribution Width SD 50.4 fl (35.1-43.9); Red Blood Count 4.97 M/mm3 (4.6-6.2); White Blood Count 6.3 K/mm3 (4.4-11.0)
[2023-01-01 10:34] LABS: Vitamin B12 966 pg/mL (211-911); Vitamin D,25 Hydroxy 56.4 ng/mL
[2023-01-01 10:36] LABS: ALB/GLOB Ratio 1.1 RATIO (0.9-2.4); AST(SGOT) 17 U/L (15-37); Alanine Aminotransfer ALT/SGPT 23 U/L (16-61); Albumin, Serum 3.7 g/dL (3.2-5.0); Alkaline Phosphatase 92 U/L (45-117); Anion Gap 5 (5-15); BUN 21 mg/dL (7-18); Calcium,Total 9.9 mg/dL (8.5-10.1); Chloride 106 mmol/L (98-107); Cholesterol 166 mg/dL (200); Creatinine, Serum 1.31 mg/dL (0.70-1.30); EST Glomerular Filtration Rate 56 mL/min (>60); Est Glom Filt Rate - Afr Amer 67 mL/min (>60); Globulin 3.3 g/dL (2.2-4.2); Glucose 120 mg/dL (74-106); High Density Lipoprotein 48 mg/dL; Potassium 4.4 mmol/L (3.5-5.1); Sodium Level 139 mmol/L (136-145); Triglycerides 233 mg/dL; Very Low Density Lipoprotein 47 mg/dL (5-40)
== END | disposition home or self-care (01) ==
LOC: MFPLAB 08:36
PROVIDERS: PCP Family Medicine; Visit Provider Family Medicine
DX: E55.9 Vitamin D deficiency, unspecified (principal); E11.22 Type 2 diabetes mellitus with diabetic chronic kidney disease; E11.65 Type 2 diabetes mellitus with hyperglycemia; E53.8 Deficiency of other specified B group vitamins
CPT/HCPCS: 36415; 80053; 80061; 82306; 82607; 85025

== ENCOUNTER → 2023-04-28 | Outpatient (CLI) | payer MEDICARE, SELFPAY | END | disposition home or self-care (01) | LOC: BIMLAB 14:19 | PROVIDERS: PCP Family Medicine; Referring Provider Urology; Visit Provider Urology | DX: C61 Malignant neoplasm of prostate (principal) | CPT/HCPCS: 36415; 84153 ==

== ENCOUNTER → 2024-05-20 | Outpatient (CLI) | payer MEDICARE, SELFPAY ==
--- NOTE | 2024-05-20 08:17 | CT_ITS ---
EXAM: CT ABDOMEN WITH INTRAVENOUS CONTRAST CLINICAL INDICATION: fu liver lesion TECHNIQUE: Helically acquired images were obtained of the abdomen with intravenous contrast. This CT exam was performed using one or more of the following dose reduction techniques: automated exposure control, adjustment of the mA and/or kV according to patient size, and/or use of iterative reconstruction technique. CONTRAST: Oral and amp; IV Readi-CAT and amp; 100mL Isovue-300 COMPARISON: CT abdomen and pelvis, 05/30/2022. PET/CT, 01/22/2021. FINDINGS: LOWER THORAX: Right basilar pulmonary nodule measuring approximately 7 mm. Coronary artery calcifications and/or stents. No cardiomegaly. No significant pericardial effusion. LIVER: Heterogeneously enhancing left hepatic mass measures up to approximately 8 cm. GALLBLADDER AND BILE DUCTS: Cholelithiasis without secondary signs of cholecystitis. No intra- or extrahepatic biliary ductal dilation. PANCREAS: No significant abnormality. No focal cystic or solid mass. SPLEEN: No significant abnormality. Normal size without focal cystic or solid mass. ADRENALS: No significant abnormality. No nodules. KIDNEYS AND URETERS: Status post left nephrectomy. STOMACH AND BOWEL: No significant abnormality. No stomach or bowel distention. No focal inflammatory change. INTRAPERITONEAL SPACE: No significant abnormality. No ascites or other fluid collection. No free air. BONES/JOINTS: No significant abnormality. No suspicious lytic or blastic abnormality. SOFT TISSUES: No significant abnormality. No discrete abdominal wall hernia. VASCULATURE: Atherosclerosis of the aorta and its visualized branch vessels. LYMPH NODES: No enlarged lymph nodes. CT/Abdomen WITH IV Contrast IMPRESSION: 1. Heterogeneously enhancing left hepatic mass measures up to approximately 8 cm. This appears larger compared to the prior examination and is nonspecific. ACR White Paper guidelines (Madhuri, et al. JACR 2017; 14(11):4548-5727.) suggest the following. For patients with a low risk of malignancy, recommend hepatic MR. For patients with high risk of malignancy (known malignancy with a propensity to metastasize to the liver, cirrhosis, and/or other hepatic risk factors), recommend hepatic MR or core biopsy. 2. Cholelithiasis without secondary signs of cholecystitis. 3. Right basilar pulmonary nodule measuring approximately 7 mm. Associated bronchiectasis suggesting an inflammatory process or post infectious process. This is similar to the prior examination dated 05/30/2022. Fleischner Society Guidelines (MacMahon, et al. Radiology 2017; 284(1):228-43) suggest no follow-up is necessary for patients with a low or high risk of malignancy. 4. Status post left nephrectomy. Electronically Signed: Rick Nguyen DO at 10:11 EST ,
[2024-05-20 08:44] LABS: CREATININE FINGERSTICK 1.2 mg/dL (0.70-1.30); EGFR FINGERSTICK > 60.0000 mL/min (>60)
== END | disposition home or self-care (01) ==
PROVIDERS: PCP Family Medicine; Referring Provider Family Medicine; Visit Provider Family Medicine
DX: R16.0 Hepatomegaly, not elsewhere classified (principal)
CPT/HCPCS: 74160; Q9967

== ENCOUNTER → 2024-06-23 | Outpatient (CLI) | payer MEDICARE, SELFPAY ==
--- NOTE | 2024-06-23 07:23 | MRI_ITS ---
PROCEDURE: MRI ABD WITH AND W/O CONTRAST REASON FOR EXAM: Liver mass. TECHNIQUE: Multiplanar, multisequence MRI of the upper abdomen without and with intravenous gadolinium-based contrast. CONTRAST: 17 cc clear scan intravenous COMPARISON: CT abdomen May 20, 2024. CT abdomen without contrast May 2022 FINDINGS: Liver: Centered in hepatic segments 4A and 4B is a mass measuring 8 cm in transverse dimension by 6.3 cm in AP dimension by 8.2 cm in craniocaudal dimension. The mass is nearly isointense to liver (minimally hyperintense relative to hepatic parenchyma) and has a hypointense central scar. Following gadolinium infusion, there is mild heterogeneous enhancement on arterial phase with non enhancement of the central scar. On subsequent phases, there is more avid enhancement throughout this mass. The central scar enhances on the last 2 sequences. On the last sequence the mass is near isointense to liver. There is no extension beyond the liver capsule. The mass previously measured up to 4.5 cm in May 2022. No tumor in the portal veins or right hepatic lobe. No cirrhotic morphology. Biliary: A few tiny stones with no signs of cholecystitis. No biliary dilatation. Pancreas: No mass or ductal dilation. Spleen: Normal size, signal intensities and contrast enhancement. Adrenals: No evidence of adrenal mass. Kidneys: Absent left kidney. The right kidney is unremarkable. Peritoneum / Retroperitoneum: No ascites. Lymph Nodes: No upper abdominal lymphadenopathy. Major Vessels: Postop changes of the aorta with plaque noted. No aneurysm. Bones: No focal marrow lesions are identified. MRI/MRI Abd WITH and W/O Contrast IMPRESSION: 8.2 cm solid mass in hepatic segments 4A and 4B, significantly increased in si ze from May 2022 (4.5 cm). Signal and enhancement characteristics could suggest an atypical FNH however given patient age and increasing size, hepatocellular carcinoma should be excluded with tissue diagnosis. This would likely be amenable to per cutaneous CT-guided biopsy, please consult with interventional radiologist. Reading Location: [facility]
[2024-06-23 08:06] LABS: CREATININE FINGERSTICK 1.2 mg/dL (0.70-1.30)
== END | disposition home or self-care (01) ==
PROVIDERS: PCP Family Medicine; Referring Provider Family Medicine; Visit Provider Family Medicine
DX: Z01.812 Encounter for preprocedural laboratory examination (principal); R16.0 Hepatomegaly, not elsewhere classified
CPT/HCPCS: 74183; A9575; A4216

== ENCOUNTER 2024-08-03 08:44 | Outpatient (CLI) | payer MEDICARE, SELFPAY ==
[2024-08-03] VITALS (12 sets, daily range): BP systolic 123–167; BP diastolic 54–87; PULSE 60–66; RESP 15–19; TEMP 36.3; O2SAT 92–99; BMI 26.6
[2024-08-03 09:15] LABS: Prothrombin Time (Protime)PT. 13.3 SECONDS (11.7-14.9)
[2024-08-03 09:16] LABS: Partial Thromboplast Time 23.7 Seconds (24.1-36.2)
--- NOTE | 2024-08-03 09:22 | CT_ITS ---
PROCEDURE: BIOPSY/INJ OR NEEDLE PLACEMENT REASON FOR EXAM: LIVER MASS TECHNIQUE: The procedure as well as the benefits and possible complications including infection and bleeding were explained to the patient. Informed consent was obtained. Conscious sedation was performed. The patient received 2 mg of Versed and 3.75 mcg of fentanyl intravenously. Conscious sedation was started at 9:54 a.m. and terminated at 1025 a.m.. The patient was independently monitored by the department nurse. The overlying skin was prepped and draped in the usual sterile fashion. Following local anesthetic application an under direct CT guidance, an 18 gauge core biopsy needle system was placed into the abnormality in the left lobe of the liver. 518 gauge core biopsies were performed. The pathologist deemed the specimen was adequate. The patient tolerated the procedure well. No immediate complication is seen. COMPARISON: None. FINDINGS: Successful core biopsies of the mass in the left lobe of the liver. CT/Biopsy/Inj or Needle Placement IMPRESSION: Successful core biopsies of the mass in the left lobe of the liver as described . The patient tolerated the procedure well. No immediate complication was noted. One or more dose reduction techniques were used (e.g., Automated exposure contr ol, adjustment of the mA and/or kV according to patient size, use of iterative reconstruction technique). Reading Location: [facility]
[2024-08-03] MEDS: 0.9% Saline Lock 10 ML Syringe IV (09:49)
[2024-08-03] MEDS: Midazolam 2 MG/2 ML Syringe IV (09:59)
[2024-08-03] MEDS: fentaNYL 100 MCG/2 ML Ampul IV (10:01)
[2024-08-03 10:05] LABS: Vitamin B12 487 pg/mL (180-914)
[2024-08-03] MEDS: Lidocaine 2% (20 ml mdv) 20 ML Vial INFILT (10:13)
--- NOTE | 2024-08-03 10:15 | LIVB_PTH ---
PATIENT: ROSALBA WASHINGTON LOC: CT U#:[id number] AGE/SX: 84/M ROOM: RE08/03/[address]: Tony Castro MD : 1940 BED: DIS: 08/03/2024 SPEC #: [id number] RECD: 08/03/24 11:11 STATUS: [place] #: [id number] OLENA: 08/03/24 10:[address]: Tony Castro DEPT: SURGICAL PATHOLOGY RECD BY: Christopher Rowe ENTERED: 08/03/24 11:11 SP TYPE: LIVER BX OTHR DR: Dr. Anmol Velazquez MD Tissues: Liver, NOS Procedures: Surgery Specimen Level V HEADER OPERATION: CT guided liver biopsy PRE-OP DIAGNOSIS: Liver mass TISSUE SUBMITTED: 18 gauge x 5 cores MICROSCOPIC DIAGNOSIS LIVER, CORE BIOPSY: * FINAL DIAGNOSIS PENDING EXPERT CONSULTATION AT [facility]. * THE FINAL DIAGNOSIS WILL FOLLOW IN AN ADDENDUM. MICROSCOPIC DESCRIPTION Slides are reviewed. GROSS DESCRIPTION Received is one container labeled with the patient's name and not further designated. The specimen consists of multiple core biopsies of dark red tissue which measure in aggregate 2 x 1 x 0.1 cm. Two air-dried DiffQuik slides were also received. TE1. EH 08/03/24. CPT:49316, 67993x9 ADDENDUM ADDENDUM ADDENDUM ADDENDUM ADDENDUM ADDENDUM ADDENDUM ADDENDUM ADDENDUM ADDENDUM ADDENDUM ADDENDUM ADDENDUM ADDENDUM ADDENDUM ADDENDUM ADDENDUM ADDENDUM ADDENDUM ADDENDUM ADDENDUM ADDENDUM ADDENDUM 08/19/2024 11:18 ADDENDUM 08/19/2024 11:18 ADDENDUM 08/19/2024 11:18 ADDENDUM 08/19/2024 11:18 ADDENDUM 08/19/2024 11:18 This addendum is added to incorporate an outside pathology consultation report. The case was examined at [facility] by Dr. Whitaker (#[id number]) and the following diagnosis was rendered. A. Liver, core biopsy: Hepatocellular carcinoma, well-differentiated Immunohistochemical stains: CK7 - focal minimal positive CK19 - negative Arginase - positive Hepatocyte - positive Reticulin - focal loss CD10 - canalicular pattern Villin- focal minimal stain Ki-67 - not increased MOC31 - negative Pedro-EP4- negative COMMENT: The diagnosis reflects the consensus of GI pathology group. Please see complete above mentioned consultation report in EMR
== END 2024-08-03 23:59 | disposition home or self-care (01) ==
PROVIDERS: PCP Family Medicine; Referring Provider Family Medicine; Visit Provider Family Medicine
DX: R16.0 Hepatomegaly, not elsewhere classified (principal); E53.8 Deficiency of other specified B group vitamins
CPT/HCPCS: 47000; 36415; 77012; 82607; 85610; 85730; 88307; 99156; A4216

== ENCOUNTER 2024-08-25 13:37 | Outpatient (CLI) | payer MEDICARE, SELFPAY ==
[2024-08-25 18:03] LABS: Absolute Lymphocyte Count 1.42 X10^3/uL (0.83-4.51); Basophil# 0.03 X10^3/uL; Basophil% 0.5 % (0-1); Eosinophils% 1.7 % (0-5); Hematocrit 40.3 % (40-54); Hemoglobin 13.1 g/dL (13.0-16.5); Lymphocyte # 1.42 X10^3/ul (0.83-4.51); Lymphocyte % 23.6 % (19-41); Mean Corp Hgb Conc 32.5 g/dL (32-36); Mean Corpuscular Hgb 29.8 pg (27.0-32.0); Mean Corpuscular Volume 91.8 fL (80-94); Mean Platelet Vol. 11.1 fl (6.2-12.0); Monocyte# 0.41 X10^3/uL; Monocyte% 6.8 % (0-10); NRBC Flagged by Analyzer 0 % (0-5); Neutrophil # 4.03 X10^3/uL (2.7-7.7); Neutrophil % 67.1 % (47-70); Platelet Count 178 K/mm3 (150-450); RBC Distribution Width CV 14.1 % (11.6-14.6); RBC Distribution Width SD 47.5 fl (35.1-43.9); Red Blood Count 4.39 M/mm3 (4.6-6.2)
[2024-08-25 18:27] LABS: ALB/GLOB Ratio 1.5 RATIO (0.9-2.4); AST(SGOT) 21 U/L (<=37); Alanine Aminotransfer ALT/SGPT 15 U/L (<=46); Albumin, Serum 4.2 g/dL (3.4-4.8); Alkaline Phosphatase 122 U/L (40-129); Anion Gap 13 (5-15); BUN 19 mg/dL (4-19); BUN/Creat Ratio 11.6 RATIO (10-20); Calcium,Total 10.2 mg/dL (7.6-11.0); Carbon Dioxide 22.4 mmol/L (21.0-32.0); Chloride 102 mmol/L (98-108); Creatinine, Serum 1.67 mg/dL (0.70-1.20); EST Glomerular Filtration Rate 40 (>60); Globulin 2.7 g/dL (2.2-4.2); Glucose 242 mg/dL (70-99); Potassium 4.2 mmol/L (3.3-5.1); Protein, Total 6.9 g/dL (5.9-8.4); Sodium Level 137 mmol/L (133-145)
[2024-08-25 18:38] LABS: Prothrombin Time (Protime)PT. 13.1 SECONDS (11.7-14.9)
[2024-08-25 18:39] LABS: Partial Thromboplast Time 27.6 Seconds (24.1-36.2)
[2024-08-27 06:08] LABS: AFP, Tumor Marker 2.4 ng/mL (0.0-6.4); HEPATITIS B SURFACE AG Negative (Negative); Hep C Antibodies Non Reactive (Non Reactive); Hepatitis A IgM Antibody Negative (Negative); Hepatitis B Core AB IgM Negative (Negative)
== END 2024-08-25 23:59 | disposition home or self-care (01) ==
LOC: MFPLAB 13:37
PROVIDERS: PCP Family Medicine; Referring Provider Family Medicine; Visit Provider Family Medicine
DX: C22.0 Liver cell carcinoma (principal)
CPT/HCPCS: 36415; 80053; 80074; 82105; 85025; 85610; 85730

== ENCOUNTER 2025-04-25 13:07 | Inpatient (IN) | payer MEDICARE, SELFPAY ==
[2025-04-25 13:08] VITALS: BP 128/98; PULSE 60; RESP 15; TEMP 37; O2SAT 98; BMI 27.6
--- NOTE | 2025-04-25 13:41 | ED.VIS.GI ---
HPI HPI - GI History of Present Illness Chief Complaint: GI Bleed Detail of Chief Complaint: Heavy rectal bleeding today. Informant: patient and family Nausea/Vomiting/Emesis GI Symptom: Negative for Nausea or Vomiting Diarrhea/Melena/Hematochezia GI Symptom: Positive for Hematochezia (Today with large clots.); Negative for Diarrhea or Melena Onset: Today and Hours Severity: Moderate Associated Symptoms Associated Symptoms: Negative for Dysuria, Frequency or Hematuria Narrative Narrative: 85-year-old male history of prostate cancer and liver cancer with cancer also in his lungs is not sure if it is metastases or another primary. 2 prior MIs takes a full adult aspirin a day but no other blood thinners. Known diabetic. Has had 1 prior kidney resected. He has never had a GI bleed he was worked up for in the past. He has never needed a blood transfusion. He is not on other blood thinners besides aspirin. Basely today has had rectal bleeding that is painless. With clots. Denies being lightheaded or dizzy. No abdominal pain or nausea. No hematemesis. Prior similar symptoms: No Recent Illness/Hospitalization: No PFSH PFSH Medical History Lung nodule Hyperlipidemia Hypertension Aortic aneurysm History of prostate cancer Past heart attack Rheumatic fever Home Medications ?Medication ?Instructions ?Recorded ?Last Taken ?Type aspirin 325 mg tablet,delayed 325 mg PO QHS 03/10/16 Unknown History release atenolol 50 mg tablet 50 mg PO QHS 03/10/16 Unknown History atorvastatin 80 mg tablet 80 mg PO QHS 03/10/16 Unknown History omeprazole 20 mg capsule,delayed 20 mg PO DAILY 03/10/16 03/12/16 04:30 History release cholecalciferol (vitamin D3) 50 50 mcg PO DAILY 06/26/22 Unknown History mcg (2,000 unit) capsule (Vitamin D3) ipratropium bromide 21 mcg (0.03 2 spray intranasal BID 07/14/24 Unknown History %) nasal spray simethicone 80 mg chewable tablet 80 mg PO Q6H PRN abdominal 07/14/24 Unknown History (Gas Relief (simethicone)) distention vitamin E 200 unit capsule 180 mg PO DAILY 07/14/24 Unknown History atezolizumab 1,200 mg/20 mL (60 mg IV 04/25/25 Unknown History mg/mL) intravenous solution bevacizumab 25 mg/mL intravenous mg 04/25/25 Unknown History solution (Avastin) enalapril maleate 20 mg tablet 40 mg PO DAILY 04/25/25 Unknown History glimepiride 4 mg tablet 8 mg PO DAILY 04/25/25 Unknown History venlafaxine 37.5 mg 37.5 mg PO DAILY 04/25/25 Unknown History capsule,extended release 24 hr Allergy/AdvReac Type Severity Reaction Status Date / Time No Known Allergies Allergy Verified 04/25/25 13:10 Family History Father Heart disease Cancer Prostate Brother Heart disease Colon cancer Surgical History History of angioplasty Hx of kidney removal Social History Smoking Status: Former smoker Tobacco: How many years used: 30 how long ago did patient quit smokin ROS ROS ED ROS Narrative Denies recent illness. Constitutional Constitutional ED: Denies chills or fever(s) ENT ENT ED: Denies ear pain Cardiovascular Cardiovascular: Denies chest pain Respiratory/Chest Respiratory/Chest: Denies cough Gastrointestinal Gastrointestinal: Denies abdominal pain, diarrhea, melena, nausea or vomiting Genitourinary Genitourinary ED: Denies dysuria or hematuria Musculoskeletal Musculoskeletal: Denies arthralgias Integumentary Denies abscess Neurologic Neurologic: Denies headache(s) Psychiatric Psychiatric: Denies anxiety Endocrine Endocrinology: Denies polydipsia Hematologic/Lymphatic Hematologic/Lymphatic: Denies easy bleeding, easy bruising or lymphadenopathy Allergic/Immunologic Allergic/Immunologic ED: Denies mouth swelling EXAM Physical Exam Narrative Exam Narrative: 85-year-old male vital signs are stable afebrile. Initial blood pressure 128/98 with a heart rate of 60. H EENT exam pupils round react light. Moist mucous membranes. Neck nontender no JVD. Lungs clear to auscultation bilaterally. Heart regular rhythm rate about 60 no murmur. Chest wall ribs nontender. Abdomen soft nontender. Moving all 4 extremities. Nontender no edema. Normal strength. He has bright red blood coming from his rectum. With large clots. Moderate amount. Patient is awake alert. Answer questions following commands. Const Vital Signs: 04/25/25 13:08 04/25/25 15:07 Temperature 98.6 F Temperature Source Oral Pulse Rate 60 60 Respiratory Rate 15 18 Blood Pressure 128/98 H 109/68 Blood Pressure Mean 108 81 Pulse Ox 98 95 Oxygen Delivery Method Room Air Room Air MDM MDM MDM Narrative Medical decision making narrative: 85-year-old male history of cancer prostate and liver. With rectal bleeding. He is on a daily aspirin but no other blood thinners. Got a significant amount of rectal bleeding. Screening labs to be obtained will be typed and screened and typed and crossed for blood. He will need to be admitted and need a colonoscopy. Multiple repeat exams he still has bleeding but it is slowing down. And the clots are not nearly as large. Given his current blood count and clinical appearance I am not transfusing blood at this time. He has been given IV fluid bolus. I have spoken to GI and I have the hospitalist on page for admission. History & Record Review Discussion w/independent historian: Patient and Family Additional record(s) reviewed:: Prior outpatient record, Prior ED visit and Prior labs Lab Data Attestation: I reviewed the patient's lab results. Lab results narrative: CBC shows a white count of 7. H&H of 13.3 and 41. Platelets 146. Repeat hemoglobin and hematocrit was 12.2 and 37 about 1-1/2 hours after the first. Chemistries show a gap of 13. BUN and creatinine of 30 and 1.98. Glucose 178. Liver enzymes are unremarkable. Blood type B+. PT/INR 13.8, 1 and 26.7 PTT. Labs: Laboratory Results - last 24 hr 04/25/25 04/25/25 04/25/25 13:25 13:57 14:08 WBC 7.2 RBC 4.63 Hgb 13.3 Hct 41.0 MCV 88.6 MCH 28.7 MCHC 32.4 RDW Std Deviation 47.2 H RDW Coeff of Donnie 14.7 H Plt Count 146 L MPV 12.3 H Immature Gran % (Auto) 0.300 Neut % (Auto) 64.8 Lymph % (Auto) 23.1 [place] % (Auto) 9.1 Eos % (Auto) 2.1 Baso % (Auto) 0.6 Absolute Neuts (auto) 4.7 Absolute Lymphs (auto) 1.67 Nucleated RBC % 0 PT 13.8 INR 1.0 APTT 26.7 Sodium Cancelled 138 Potassium Cancelled 5.0 Chloride Cancelled 107 Carbon Dioxide Cancelled 18.6 L Anion Gap Cancelled 13 BUN Cancelled 30 H Creatinine Cancelled 1.98 H Estim Creat Clear Calc Cancelled 30.02 L Est GFR (MDRD) Non-Af Cancelled 33 L BUN/Creatinine Ratio Cancelled 15.2 Glucose Cancelled 178 H Calcium Cancelled 10.0 Total Bilirubin Cancelled 0.53 AST Cancelled 20 ALT Cancelled 13 Alkaline Phosphatase Cancelled 115 Total Protein Cancelled 6.3 Albumin Cancelled 3.5 Globulin Cancelled 2.8 Albumin/Globulin Ratio Cancelled 1.3 POC Glucose Blood Type B POSITIVE Antibody Screen NEGATIVE Crossmatch See Detail 04/25/25 04/25/25 14:28 14:50 WBC 9.2 RBC 4.22 L Hgb 12.2 L Hct 37.4 L MCV 88.6 MCH 28.9 MCHC 32.6 RDW Std Deviation 47.3 H RDW Coeff of Donnie 14.8 H Plt Count 152 MPV 11.8 Immature Gran % (Auto) 0.200 Neut % (Auto) 60.0 Lymph % (Auto) 27.7 [place] % (Auto) 10.3 H Eos % (Auto) 1.5 Baso % (Auto) 0.3 Absolute Neuts (auto) 5.5 Absolute Lymphs (auto) 2.54 Nucleated RBC % 0 PT INR APTT Sodium Potassium Chloride Carbon Dioxide Anion Gap BUN Creatinine Estim Creat Clear Calc Est GFR (MDRD) Non-Af BUN/Creatinine Ratio Glucose Calcium Total Bilirubin AST ALT Alkaline Phosphatase Total Protein Albumin Globulin Albumin/Globulin Ratio POC Glucose 150 H Blood Type Antibody Screen Crossmatch Discharge Plan Dx/Rx/DC Orders Clinical Impression: Acute lower gastrointestinal hemorrhage, History of UT (myocardial infarction), History of prostate cancer, History of liver cancer, Chronic kidney disease, History of nephrectomy Disposition Disposition: Acute Care [facility]
[2025-04-25 13:55] LABS: Hematocrit 41.0 % (40-54); Hemoglobin 13.3 g/dL (13.0-16.5); Immature Granulocytes Count 0.020 X10^3/uL (0.0-0.0); Mean Corp Hgb Conc 32.4 g/dL (32-36); Mean Corpuscular Volume 88.6 fL (80-94); Mean Platelet Vol. 12.3 fl (6.2-12.0); NRBC Flagged by Analyzer 0 % (0-5); Platelet Count 146 K/mm3 (150-450); RBC Distribution Width CV 14.7 % (11.6-14.6); RBC Distribution Width SD 47.2 fl (35.1-43.9); Red Blood Count 4.63 M/mm3 (4.6-6.2); White Blood Count 7.2 K/mm3 (4.4-11.0)
[2025-04-25 14:02] LABS: Prothrombin Time (Protime)PT. 13.8 SECONDS (11.7-14.9)
[2025-04-25 14:03] LABS: Partial Thromboplast Time 26.7 Seconds (24.1-36.2)
[2025-04-25] MEDS: 0.9% Normal Saline (1000mL) 1,000 ML 999 ML IV (14:35)
[2025-04-25 15:00] LABS: Hematocrit 37.4 % (40-54); Hemoglobin 12.2 g/dL (13.0-16.5); Immature Granulocytes Count 0.020 X10^3/uL (0.0-0.0); Mean Corp Hgb Conc 32.6 g/dL (32-36); Mean Corpuscular Volume 88.6 fL (80-94); Mean Platelet Vol. 11.8 fl (6.2-12.0); NRBC Flagged by Analyzer 0 % (0-5); Platelet Count 152 K/mm3 (150-450); RBC Distribution Width CV 14.8 % (11.6-14.6); RBC Distribution Width SD 47.3 fl (35.1-43.9); Red Blood Count 4.22 M/mm3 (4.6-6.2); White Blood Count 9.2 K/mm3 (4.4-11.0)
[2025-04-25 15:07] VITALS: BP 109/68; PULSE 60; RESP 18; O2SAT 95
[2025-04-25 15:08] LABS: AST(SGOT) 20 U/L (<=37); Alanine Aminotransfer ALT/SGPT 13 U/L (<=46); Albumin, Serum 3.5 g/dL (3.4-4.8); Alkaline Phosphatase 115 U/L (40-129); Anion Gap 13 (5-15); BUN 30 mg/dL (4-19); BUN/Creat Ratio 15.2 RATIO (10-20); Calcium,Total 10.0 mg/dL (7.6-11.0); Carbon Dioxide 18.6 mmol/L (21.0-32.0); Chloride 107 mmol/L (98-108); Estimated Creatinine Clearance 30.02 ml/min (50-250); Globulin 2.8 g/dL (2.2-4.2); Glucose 178 mg/dL (70-99); Potassium 5.0 mmol/L (3.3-5.1)
--- NOTE | 2025-04-25 15:18 | ED.RN ---
changed pt bed and cleaned with bath wipes x2. Bleeding and passing large clots, dark red. Dr. Malloy notified of pt becoming pale, diaphoretic and retching. Blood sugar obtained, 150. Vitals stable. Given zofran and liter of fluids. Pt less pale and not as diaphoretic. Instructed to hold blood for now, give if pt condition worsens
[2025-04-25 15:51] VITALS: BP 153/87; PULSE 60; RESP 15; TEMP 36.6; O2SAT 96
--- NOTE | 2025-04-25 16:15 | PCM.HP.STD ---
[facility] - General General Date of Admission: 04/25/25 Date of Service: 04/25/25 Chief Complaint: GI bleed HPI Narrative ROSALBA WASHINGTON, is a 85 M who presents with GI bleed. This is an 85-year-old male with a history of prostate as well as hepatocellular carcinoma who presents with acute onset of GI bleed. Symptoms began around 10:00 today. Patient was having voluminous blood with blood clots. Presented emergency room where his hemoglobin was noted to be 12.2. Patient was typed and crossed but did not receive transfusion. While he was in the emergency room, his bleeding has not abated but has slowed down. Currently his stools are mostly stool and some blood. Patient does feel nauseated when he and has some dry heaves when he feels these issues coming on. Patient has never had a GI bleed before. [ ] [facility] Medical History Lung nodule Hyperlipidemia Hypertension Aortic aneurysm History of prostate cancer Past heart attack Rheumatic fever Home Medications ?Medication ?Instructions ?Recorded ?Last Taken ?Type aspirin 325 mg tablet,delayed 325 mg PO QHS 03/10/16 Unknown History release atenolol 50 mg tablet 50 mg PO QHS 03/10/16 Unknown History atorvastatin 80 mg tablet 80 mg PO QHS 03/10/16 Unknown History omeprazole 20 mg capsule,delayed 20 mg PO DAILY 03/10/16 03/12/16 04:30 History release cholecalciferol (vitamin D3) 50 50 mcg PO DAILY 06/26/22 Unknown History mcg (2,000 unit) capsule (Vitamin D3) ipratropium bromide 21 mcg (0.03 2 spray intranasal BID 07/14/24 Unknown History %) nasal spray simethicone 80 mg chewable tablet 80 mg PO Q6H PRN abdominal 07/14/24 Unknown History (Gas Relief (simethicone)) distention vitamin E 200 unit capsule 180 mg PO DAILY 07/14/24 Unknown History atezolizumab 1,200 mg/20 mL (60 mg IV 04/25/25 Unknown History mg/mL) intravenous solution bevacizumab 25 mg/mL intravenous mg 04/25/25 Unknown History solution (Avastin) enalapril maleate 20 mg tablet 40 mg PO DAILY 04/25/25 Unknown History glimepiride 4 mg tablet 8 mg PO DAILY 04/25/25 Unknown History venlafaxine 37.5 mg 37.5 mg PO DAILY 04/25/25 Unknown History capsule,extended release 24 hr Allergy/AdvReac Type Severity Reaction Status Date / Time No Known Allergies Allergy Verified 04/25/25 13:10 Family History Father Heart disease Cancer Prostate Brother Heart disease Colon cancer Surgical History History of angioplasty Hx of kidney removal Social History Smoking Status: Former smoker Tobacco: How many years used: 30 how long ago did patient quit smokin ROS ROS Narrative All review of systems were negative except as mentioned above in the history of present illness and the other review of systems. Vital Signs Vital Signs Vital Signs: 04/25/25 13:08 04/25/25 15:07 04/25/25 15:51 Temperature 37.0 C 36.6 C Temperature Source Oral Pulse Rate 60 60 60 Respiratory Rate 15 18 15 Blood Pressure 128/98 H 109/68 153/87 H Blood Pressure Mean 108 81 109 Pulse Ox 98 95 96 Oxygen Delivery Method Room Air Room Air Weight Weight: 85 kg Body Mass Index (BMI) 27.6 Physical Exam Const alert Constitutional Narrative: Has dry heaves while was present in room and did have some emesis that was clear liquid but not bloody. Pale appearance. HEENT normocephalic and head/scalp atraumatic Resp normal respiratory effort, no retractions, no use of accessory muscles and clear to auscultation bilaterally Cardio regular rate, regular rhythm, S1 normal heart sound and S2 normal heart sound GI normal to inspection, nondistended, normoactive bowel sounds, soft to palpation, non-tender, non-distended and hepatosplenomegaly GI Narrative: Patient's undergarments were visualized and patient did have light brown stool with some scant amount of gelatinous blood. Extremity normal to inspection and full ROM Neuro Sensorium / Orientation: awake and alert Psych affect normal Results Lab / Micro Data Attestation: I reviewed the patient's lab results. 04/25/25 14:50 04/25/25 13:57 Labs: Laboratory Results - last 24 hr 04/25/25 13:25: WBC 7.2, RBC 4.63, Hgb 13.3, Hct 41.0, MCV 88.6, MCH 28.7, MCHC 32.4, RDW Std Deviation 47.2 H, RDW Coeff of Donnie 14.7 H, Plt Count 146 L, MPV 12.3 H, Immature Gran % (Auto) 0.300, Neut % (Auto) 64.8, Lymph % (Auto) 23.1, [place] % (Auto) 9.1, Eos % (Auto) 2.1, Baso % (Auto) 0.6, Absolute Neuts (auto) 4.7, Absolute Lymphs (auto) 1.67, Nucleated RBC % 0, PT 13.8, INR 1.0, APTT 26.7, Sodium Cancelled, Potassium Cancelled, Chloride Cancelled, Carbon Dioxide Cancelled, Anion Gap Cancelled, BUN Cancelled, Creatinine Cancelled, Estim Creat Clear Calc Cancelled, Est GFR (MDRD) Non-Af Cancelled, BUN/Creatinine Ratio Cancelled, Glucose Cancelled, Calcium Cancelled, Total Bilirubin Cancelled, AST Cancelled, ALT Cancelled, Alkaline Phosphatase Cancelled, Total Protein Cancelled, Albumin Cancelled, Globulin Cancelled, Albumin/Globulin Ratio Cancelled 04/25/25 13:57: Sodium 138, Potassium 5.0, Chloride 107, Carbon Dioxide 18.6 L, Anion Gap 13, BUN 30 H, Creatinine 1.98 H, Estim Creat Clear Calc 30.02 L, Est GFR (MDRD) Non-Af 33 L, BUN/Creatinine Ratio 15.2, Glucose 178 H, Calcium 10.0, Total Bilirubin 0.53, AST 20, ALT 13, Alkaline Phosphatase 115, Total Protein 6.3, Albumin 3.5, Globulin 2.8, Albumin/Globulin Ratio 1.3 04/25/25 14:08: Blood Type B POSITIVE, Antibody Screen NEGATIVE, Crossmatch See Detail 04/25/25 14:28: POC Glucose 150 H 04/25/25 14:50: WBC 9.2, RBC 4.22 L, Hgb 12.2 L, Hct 37.4 L, MCV 88.6, MCH 28.9, MCHC 32.6, RDW Std Deviation 47.3 H, RDW Coeff of Donnie 14.8 H, Plt Count 152, MPV 11.8, Immature Gran % (Auto) 0.200, Neut % (Auto) 60.0, Lymph % (Auto) 27.7, Stone % (Auto) 10.3 H, Eos % (Auto) 1.5, Baso % (Auto) 0.3, Absolute Neuts (auto) 5.5, Absolute Lymphs (auto) 2.54, Nucleated RBC % 0 Assessment & Plan Assessment/Plan (1) GI bleed: PLAN: Suspected lower. Patient did have active vomiting while in the room but was not bloody at all. Bleeding seems to be abating at this time. I suspect that his bleeding may be due to diverticulosis or internal hemorrhoids. Patient does have a history of external hemorrhoids but never bled anything like this previously. Patient's hemoglobin is down to 12 from 15. No indication to transfuse at this time but will continue to monitor his hemoglobin. Patient does take aspirin and we will hold that for now. Gastroenterology has been contacted from the emergency room and I will place consultation. I will start the patient on IV PPI. Will defer colon prep to gastroenterology. Clear liquid diet for now. If patient does start having brisk bleeding again, he may need to have CT angiogram to evaluate if there would be area that would require interventional radiology for embolization. That is not necessary at this time. PLAN: Plan History of prostate hepatocellular carcinoma: Follow-up with Dr. Tsang as outpatient History of CAD: Stable. Hold aspirin. Continue with atenolol and atorvastatin. Diabetes mellitus type 2: Will hold off on his glimepiride for now. Add sliding scale insulin. VTE prophylaxis with SCDs CODE STATUS: Verified. Full code. Charges/Coding Visit Charges Inpatient E&M: 69420 Init Hosp L2
[2025-04-25 16:40] VITALS: BMI 27.6
[2025-04-25 17:09] VITALS: BP 139/87; PULSE 61; RESP 19; TEMP 36.3; O2SAT 100
[2025-04-25 17:14] LABS: Hematocrit 40.3 % (40-54); Hemoglobin 12.8 g/dL (13.0-16.5)
--- NOTE | 2025-04-25 19:41 | CON.PCM.GI_ITS ---
HPI Consult Data Date of Consult: 04/25/25 HPI Narrative Reason for Consultation: GI bleed HPI Narrative: ROSALBA WASHINGTON, is a 85-year-old gentleman with a complex history of multiple malignancies and treatments, presenting to the Emergency Department (ED) with multiple episodes of lower gastrointestinal bleeding and constipation for three days. History obtained solely from the patient's daughter at the bedside. * He admits to multiple episodes of lower GI bleeding. Constipation for three days. * The patient was constipated for three days, prompting his daughter to administer stool softeners. Subsequently developed multiple episodes of lower GI bleeding. * PMH (Past Medical History), per daughter: * Recurrent prostate adenocarcinoma (s/p radiation seed therapy, external beam radiation, currently on testosterone suppression therapy). * Hepatocellular carcinoma (without diagnosis of cirrhosis). Currently on immunotherapy. * Renal cell carcinoma (s/p resection). * PSH (Past Surgical History):?History of renal cell carcinoma status post resection. * Medications: * Immunotherapy (for HCC and prostate cancer). * Testosterone suppression therapy. * Full baby aspirin daily. * Stool softeners (given by daughter prior to presentation). * Labs in ED: * WBC: 7 * Hgb: 15, then dropped to 12.5 (indicating significant blood loss) * Platelets: 142 * INR: 1 * BUN: 30 * Creatinine: 1.9 (suggesting potential renal dysfunction or dehydration) * AST: 20 * ALT: 13 * Bili: 0.53 * Alkaline Phosphatase: 115] PFSH Medical History Lung nodule Hyperlipidemia Hypertension Aortic aneurysm History of prostate cancer Past heart attack Rheumatic fever Home Medications ?Medication ?Instructions ?Recorded ?Last Taken ?Type aspirin 325 mg tablet,delayed 325 mg PO QHS 03/10/16 U nknown History release atenolol 50 mg tablet 50 mg PO QHS 03/10/16 Unknow n History atorvastatin 80 mg tablet 80 mg PO QHS 03/10/16 Unknow n History omeprazole 20 mg capsule,delayed 20 mg PO DAILY 03/12/16 04:30 History release cholecalciferol (vitamin D3) 50 50 mcg PO DAILY Unknown History mcg (2,000 unit) capsule (Vitamin D3) ipratropium bromide 21 mcg (0.03 2 spray intranasal BI D 07/14/24 Unknown History %) nasal spray simethicone 80 mg chewable tablet 80 mg PO Q6H PRN abd ominal 07/14/24 Unknown History (Gas Relief (simethicone)) distention vitamin E 200 unit capsule 180 mg PO DAILY 07/14/24 Un known History atezolizumab 1,200 mg/20 mL (60 mg IV 04/25/25 Unknown History mg/mL) intravenous solution bevacizumab 25 mg/mL intravenous mg 04/25/25 Unknown H istory solution (Avastin) enalapril maleate 20 mg tablet 40 mg PO DAILY 04/25/25 Unknown History glimepiride 4 mg tablet 8 mg PO DAILY 04/25/25 Unkno wn History venlafaxine 37.5 mg 37.5 mg PO DAILY 04/25/25 Un known History capsule,extended release 24 hr Allergy/AdvReac Type Severity Reaction Status Date / Time No Known Allergies Allergy Verified 04/25/25 13:10 Family History Father Heart disease Cancer Prostate Brother Heart disease Colon cancer Surgical History History of angioplasty Hx of kidney removal Social History Smoking Status: Former smoker Tobacco: How many years used: 30 how long ago did patient quit smokin ROS Constitutional Constitutional: Denies fatigue, fever(s), poor appetite, weight gain or weight loss Gastrointestinal Gastrointestinal: Denies belching, bloating, change in bowel habits, change in stool character, chewing difficulty, coffee ground emesis, constipation, cramping, diarrhea, dyspepsia, dysphagia, early satiety, excessive flatus, fecal incontinence, heartburn, hematemesis, hematochezia, hemorrhoids, loose stools, melena, nausea, odynophagia, rectal bleeding, tenesmus, vomiting or weight changes Physical Exam Const alert, oriented x3, no apparent distress and healthy appearing General Appearance: cooperative GI normal to inspection, nondistended, normoactive bowel sounds, soft to palpation, non-tender and non-distended Percussion: normal to percussion Rectal Exam: deferred Lab / Micro Data 04/25/25 17:05 04/25/25 13:57 Labs: Laboratory Results - last 24 hr 04/25/25 13:25: WBC 7.2, RBC 4.63, Hgb 13.3, Hct 41.0, MCV 88.6, MCH 28.7, MCHC 32.4, RDW Std Deviation 47.2 H, RDW Coeff of Donnie 14.7 H, Plt Count 146 L, MPV 12.3 H, Immature Gran % (Auto) 0.300, Neut % (Auto) 64.8, Lymph % (Auto) 23.1, [place] % (Auto) 9.1, Eos % (Auto) 2.1, Baso % (Auto) 0.6, Absolute Neuts (auto) 4.7, Absolute Lymphs (auto) 1.67, Nucleated RBC % 0, PT 13.8, INR 1.0, APTT 26.7, Sodium Cancelled, Potassium Cancelled, Chloride Cancelled, Carbon Dioxide Cancelled, Anion Gap Cancelled, BUN Cancelled, Creatinine Cancelled, Estim Creat Clear Calc Cancelled, Est GFR (MDRD) Non-Af Cancelled, BUN/Creatinine Ratio Cancelled, Glucose Cancelled, Calcium Cancelled, Total Bilirubin Cancelled, AST Cancelled, ALT Cancelled, Alkaline Phosphatase Cancelled, Total Protein Cancelled, Albumin Cancelled, Globulin Cancelled, Albumin/Globulin Ratio Cancelled 04/25/25 13:57: Sodium 138, Potassium 5.0, Chloride 107, Carbon Dioxide 18.6 L, Anion Gap 13, BUN 30 H, Creatinine 1.98 H, Estim Creat Clear Calc 30.02 L, Est GFR (MDRD) Non-Af 33 L, BUN/Creatinine Ratio 15.2, Glucose 178 H, Calcium 10.0, Total Bilirubin 0.53, AST 20, ALT 13, Alkaline Phosphatase 115, Total Protein 6.3, Albumin 3.5, Globulin 2.8, Albumin/Globulin Ratio 1.3 04/25/25 14:08: Blood Type B POSITIVE, Antibody Screen NEGATIVE, Crossmatch See Detail 04/25/25 14:28: POC Glucose 150 H 04/25/25 14:50: WBC 9.2, RBC 4.22 L, Hgb 12.2 L, Hct 37.4 L, MCV 88.6, MCH 28.9, MCHC 32.6, RDW Std Deviation 47.3 H, RDW Coeff of Donnie 14.8 H, Plt Count 152, MPV 11.8, Immature Gran % (Auto) 0.200, Neut % (Auto) 60.0, Lymph % (Auto) 27.7, M phil % (Auto) 10.3 H, Eos % (Auto) 1.5, Baso % (Auto) 0.3, Absolute Neuts (auto) 5.5, Absolute Lymphs (auto) 2.54, Nucleated RBC % 0 04/25/25 16:48: POC Glucose 121 H 04/25/25 17:05: Hgb 12.8 L, Hct 40.3 Assessment & Plan Assessment/Plan (1) GI bleed: (2) History of liver cancer: (3) History of prostate cancer: PLAN: 85-year-old male with extensive history of multi-organ malignancies presenting with acute lower GI bleeding of unclear etiology and acute blood loss anemia. * Acute Lower GI Bleeding:?Differential diagnosis includes potential upper GI bleed with rapid transit, radiation proctitis (given history of pelvic radiation therapy), diverticulosis, or angiodysplasia. The patient's use of daily aspirin may exacerbate bleeding. Immunotherapy can also rarely cause colitis or enteritis leading to GI bleeding. * Anemia (Acute blood loss):?Hemoglobin dropped from 15 to 12.5 in the ED, indicating active, ongoing bleeding. * Acute Kidney Injury (BIANCA):?Creatinine of 1.9 suggests potential BIANCA, possibly secondary to dehydration from GI fluid loss or pre-existing renal issues (history of renal cell carcinoma s/p resection may involve a solitary kidney or compromised function). * Complex Oncology History:?Patient has active hepatocellular carcinoma and prostate cancer managed with immunotherapy and hormone therapy, as well as a history of renal cell carcinoma. Unbiopsied lung and spine lesions noted. Plan * Diagnostics: * Continue resuscitation and hemodynamic monitoring. * Type and screen for blood products; prepare for potential transfusion if Hgb continues to drop or patient becomes unstable. * Prep for EGD and colonoscopy tomorrow * Therapeutics: * Supportive care, IV fluids for hydration/resuscitation. * Hold daily aspirin * Continue ongoing cancer treatments as directed by Oncology, coordinating care closely. * Consultations: * Oncology (inform primary oncologist of admission and GI bleeding status). * Nephrology (consider consultation for BIANCA given Cr of 1.9, especially with cancer history and potential for solitary kidney). Portions of this note were generated using voice recognition software ([employer]). I have reviewed the contents and every effort has been made to ensure accuracy; however, inadvertent errors in grammar, spelling, punctuation, or word choice may occur, that were not noted before signing the document and should not alter the intended clinical meaning. Charges/Coding Visit Charges Inpatient E&M: 77696 Init Hosp L3
[2025-04-25 20:32] VITALS: BP 119/71; PULSE 71; RESP 20; TEMP 36.9; O2SAT 97
[2025-04-25] MEDS: Pantoprazole Sodium 40 MG in 0.9% Normal Saline (100mL MB+) 100 ML 300 MG IV (20:49)
[2025-04-25] MEDS: Electrolyte Solution/Peg's 4000 ML PO (20:50)
--- NOTE | 2025-04-25 22:45 | NURSING ---
pt has had approximately 1/2 of the rx'd nulightly. states he does not have room for anymore and he'd like to stop drinking it. pt has not yet had bm. educated pt on reason for prep and for colonoscopy. pt receptive to pausing for a period of time until he has a bowel movement. will monitor
[2025-04-25 23:12] LABS: Hematocrit 35.6 % (40-54); Hemoglobin 11.4 g/dL (13.0-16.5)
[2025-04-26] VITALS (14 sets, daily range): BP systolic 93–166; BP diastolic 64–98; PULSE 56–68; RESP 16–18; TEMP 36.2–36.9; O2SAT 95–100; BMI 27.6
[2025-04-26 05:01] LABS: Hematocrit 34.2 % (40-54); Hemoglobin 10.8 g/dL (13.0-16.5); Immature Granulocytes Count 0.020 X10^3/uL (0.0-0.0); Mean Corp Hgb Conc 31.6 g/dL (32-36); Mean Corpuscular Volume 89.8 fL (80-94); Mean Platelet Vol. 11.4 fl (6.2-12.0); NRBC Flagged by Analyzer 0 % (0-5); Platelet Count 144 K/mm3 (150-450); RBC Distribution Width CV 14.7 % (11.6-14.6); RBC Distribution Width SD 48.0 fl (35.1-43.9); Red Blood Count 3.81 M/mm3 (4.6-6.2); White Blood Count 8.0 K/mm3 (4.4-11.0)
[2025-04-26 05:18] LABS: Prothrombin Time (Protime)PT. 14.7 SECONDS (11.7-14.9)
[2025-04-26 05:19] LABS: Partial Thromboplast Time 27.2 Seconds (24.1-36.2)
[2025-04-26 05:30] LABS: AST(SGOT) 19 U/L (<=37); Alanine Aminotransfer ALT/SGPT 10 U/L (<=46); Albumin, Serum 3.5 g/dL (3.4-4.8); Alkaline Phosphatase 109 U/L (40-129); Anion Gap 13 (5-15); BUN 25 mg/dL (4-19); BUN/Creat Ratio 12.7 RATIO (10-20); Bilirubin, Direct 0.15 mg/dL (0.00-0.30); Calcium,Total 9.4 mg/dL (7.6-11.0); Carbon Dioxide 20.6 mmol/L (21.0-32.0); Chloride 110 mmol/L (98-108); Estimated Creatinine Clearance 29.87 ml/min (50-250); Globulin 2.4 g/dL (2.2-4.2); Glucose 129 mg/dL (70-99); Potassium 4.5 mmol/L (3.3-5.1)
--- NOTE | 2025-04-26 05:55 | EKG12_ITS ---
Test Reason : PRE-PROCEDURE Blood Pressure : */* mmHG Vent. Rate : 67 BPM Atrial Rate : 67 BPM P-R Int : 160 ms QRS Dur : 102 ms QT Int : 434 ms P-R-T Axes : 42 16 107 degrees QTcB Int : 458 ms Sinus rhythm with Premature atrial complexes Inferior infarct (cited on or before 01-Jul-2000) Abnormal ECG When compared with ECG of 10-Jul-2005 12:32, Premature atrial complexes are now Present Nonspecific T wave abnormality now evident in Anterior leads Confirmed by Hamilton Lovelace ([id number]), assignment desk editor FREEDOM RICHARDSON ([id number]) on 05/03/2025 10:21:26 AM Referred By: POLY Confirmed By: Hamilton Lovelace
--- NOTE | 2025-04-26 07:53 | PN.HOSP_ITS ---
Reason for Visit Chief Complaint: GI bleed Subjective Subjective Patient states he is feeling great and hopeful to go home tomorrow. We discussed the findings on his EGD and colonoscopy. Denies any acute issues at this time. Happy that he can have some food. Objective Data Objective Data Vital Signs: Vital Signs Temp Pulse Resp BP Pulse Ox O2 Del Method 97.9 F 64 18 122/75 H 98 Room Air 04/26/25 03:00 04/26/25 03:00 04/26/25 03:00 04/26/25 03:00 04/26/25 03:00 04/26/25 03:00 Oxygen Delivery Method Room Air Weight: 85 kg Body Mass Index (BMI) 27.6 Intake & Output: Intake and Output for Last 24 Hours 04/24/25 04/25/25 04/26/25 23:59 23:59 23:59 Intake Total 1300 / 1300 1250 / 1250 Output Total 1999 / 1999 Balance 1300 / 1300 -750 / -750 Lab / Micro Data 04/26/25 10:45 04/26/25 04:44 Labs: Laboratory Results - last 24 hr 04/25/25 13:25: WBC 7.2, RBC 4.63, Hgb 13.3, Hct 41.0, MCV 88.6, MCH 28.7, MCHC 32.4, RDW Std Deviation 47.2 H, RDW Coeff of Donnie 14.7 H, Plt Count 146 L, MPV 12.3 H, Immature Gran % (Auto) 0.300, Neut % (Auto) 64.8, Lymph % (Auto) 23.1, [place] % (Auto) 9.1, Eos % (Auto) 2.1, Baso % (Auto) 0.6, Absolute Neuts (auto) 4.7, Absolute Lymphs (auto) 1.67, Nucleated RBC % 0, PT 13.8, INR 1.0, APTT 26.7, Sodium Cancelled, Potassium Cancelled, Chloride Cancelled, Carbon Dioxide Cancelled, Anion Gap Cancelled, BUN Cancelled, Creatinine Cancelled, Estim Creat Clear Calc Cancelled, Est GFR (MDRD) Non-Af Cancelled, BUN/Creatinine Ratio Cancelled, Glucose Cancelled, Calcium Cancelled, Total Bilirubin Cancelled, AST Cancelled, ALT Cancelled, Alkaline Phosphatase Cancelled, Total Protein Cancelled, Albumin Cancelled, Globulin Cancelled, Albumin/Globulin Ratio Cancelled 04/25/25 13:57: Sodium 138, Potassium 5.0, Chloride 107, Carbon Dioxide 18.6 L, Anion Gap 13, BUN 30 H, Creatinine 1.98 H, Estim Creat Clear Calc 30.02 L, Est GFR (MDRD) Non-Af 33 L, BUN/Creatinine Ratio 15.2, Glucose 178 H, Calcium 10.0, Total Bilirubin 0.53, AST 20, ALT 13, Alkaline Phosphatase 115, Total Protein 6.3, Albumin 3.5, Globulin 2.8, Albumin/Globulin Ratio 1.3 04/25/25 14:08: Blood Type B POSITIVE, Antibody Screen NEGATIVE, Crossmatch See Detail 04/25/25 14:28: POC Glucose 150 H 04/25/25 14:50: WBC 9.2, RBC 4.22 L, Hgb 12.2 L, Hct 37.4 L, MCV 88.6, MCH 28.9, MCHC 32.6, RDW Std Deviation 47.3 H, RDW Coeff of Donnie 14.8 H, Plt Count 152, MPV 11.8, Immature Gran % (Auto) 0.200, Neut % (Auto) 60.0, Lymph % (Auto) 27.7, M phil % (Auto) 10.3 H, Eos % (Auto) 1.5, Baso % (Auto) 0.3, Absolute Neuts (auto) 5.5, Absolute Lymphs (auto) 2.54, Nucleated RBC % 0 04/25/25 16:48: POC Glucose 121 H 04/25/25 17:05: Hgb 12.8 L, Hct 40.3 04/25/25 23:03: Hgb 11.4 L, Hct 35.6 L 04/26/25 04:44: WBC 8.0, RBC 3.81 L, Hgb 10.8 L, Hct 34.2 L, MCV 89.8, MCH 28.3, MCHC 31.6 L, RDW Std Deviation 48.0 H, RDW Coeff of Donnie 14.7 H, Plt Count 144 L, MPV 11.4, Immature Gran % (Auto) 0.300, Neut % (Auto) 57.9, Lymph % (Auto) 29.2, [place] % (Auto) 10.8 H, Eos % (Auto) 1.3, Baso % (Auto) 0.5, Absolute Neuts (auto) 4.6, Absolute Lymphs (auto) 2.33, Nucleated RBC % 0, PT 14.7, INR 1.1, APTT 27.2, Sodium 144, Potassium 4.5, Chloride 110 H, Carbon Dioxide 20.6 L, Anion Gap 13, BUN 25 H, Creatinine 1.99 H, Estim Creat Clear Calc 29.87 L, Est GFR (MDRD) Non-Af 32 L, BUN/Creatinine Ratio 12.7, Glucose 129 H, Hemoglobin A1c 7.5 H, Calcium 9.4, Total Bilirubin 0.35, Direct Bilirubin 0.15, AST 19, ALT 10, Alkaline Phosphatase 109, Total Protein 5.8 L, Albumin 3.5, Globulin 2.4 Physical Exam Const alert, oriented x3, no apparent distress, average body habitus and well nourished; Negative for healthy appearing Constitutional Narrative: elderly, white male, lying in bed, appears comfortable, nontoxic HEENT head/scalp atraumatic and moist oral mucous membranes HEENT Narrative: Mallampati 3, no thrush Head and Scalp: normocephalic Eyes conjunctivae normal Eyes Narrative: No scleral icterus Neck supple Neck Narrative: Trachea midline Resp normal respiratory effort, no retractions, no use of accessory muscles and clear to auscultation bilaterally Auscultation: Negative for crackles, rhonchi or wheezes Cardio regular rate, regular rhythm, S1 normal heart sound, S2 normal heart sound, no murmurs, no rub, no gallops and no clicks GI normal to inspection, nondistended, normoactive bowel sounds, soft to palpation and non-tender GI Narrative: Abdomen is completely nontender Extremity no clubbing, cyanosis or edema Extremity Narrative: 2+ pedal and radial pulses Neuro moves all extremities and no focal motor deficits Neuro Narrative: Generalized weakness noted with no specific focal deficits Speech: speech normal Psych affect normal Psych Narrative: Very talkative, interacts appropriately, very pleasant Assessment & Plan Assessment/Plan (1) Upper GI bleed: (2) Gastric peptic ulcer: (3) Colon polyps: (4) Acute blood loss anemia: PLAN: Plan UGIB 2/2 Gastric Ulcer - EGD showed many oozing gastric ulcers that were treated with heater probe and bx taken and path is pending -repeat endoscopy in 3 mos - hold ASA for 14 days - Protonix 40 mg PO BID x 8 weeks - Carafate 4x daily for 6 weeks - Diet per GI - will need outpt f/u with GI within a month after discharge Rectal Ulcer with defect -Defect repaired with clip - treated with argon plasma coagulation - suspect related to XRT - Biopsies were taken and currently pending - Metamucil added per GI recommendations Acute iron deficiency anemia - Related to the above - Hemoglobin at baseline appears to run between 13 and 14 - 12.2 on presentation and has trended down to a candi of 10.8 - No need for transfusion - Repeat lab in a.m. Acute thrombocytopenia - Suspect related to consumption from GI bleed - Mild at this point 144,000 - Should start to trend up now the bleeding has been mitigated - Repeat lab in a.m. CKD stage IIIb-IV - Appears at his creatinine has slowly been worsening. - Most recent labs from August at which time his creatinine was 1.67 - 1.99 today with creatinine yesterday 1.98 - Will repeat in a.m. - Would recommend outpatient nephrology follow-up - Repeat lab in a.m. 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 Girard in the near future to discuss options CAD/essential hypertension/hyperlipidemia - Will continue to hold aspirin and keep on hold for 2 weeks after discharge - Continue home atenolol - Continue home atorvastatin - Continue home lisinopril DM-2 - Hold home glimepiride - Continue sliding scale - Accu-Cheks as ordered History of aortic aneurysm - Ongoing outpatient follow-up Depression - Continue home venlafaxine DVT prophylaxis - SCDs - No chemoprophylaxis due to bleeding CODE STATUS - Full code as was verified at the time of admission Charges/Coding Visit Charges Inpatient E&M: 35752 Subs Hosp L2
[2025-04-26] MEDS: Pantoprazole Sodium 40 MG in 0.9% Normal Saline (100mL MB+) 100 ML 330 MG IV (09:50)
--- NOTE | 2025-04-26 10:20 | PRE.ANES_ITS ---
ASA Classification* ASA Classification ASA Classification: 3 Assessment & Plan Anesthesia* Anesthesia Assessment Anesthesia Assessment: Discussed sedation and/or anesthesia options, risks, benefits, and alternatives with patient/parents/legal guardian/POA. Questions invited. The patient/parents/legal guardian/POA seems to understand and agrees to proceed with anesthesia plan. Reviewed the physical assessment, medical history, allergy history and patient home medications list prior to surgery/procedure/anesthetic and documented any changes. Performed airway and anesthesia risk assessments. Anesthesia Type Anesthesia Type: MAC Anesthesia Focused Assessment* Temperature: 98.4 F Pulse Rate: 68 Blood Pressure: 135/86 Respiratory Rate: 18 Pulse Ox: 99 Airway Assessment Mouth opens: >3 cm Mallampati Score: II Labs Anesthesia Preop lab: CBC WBC, (4.4-11.0) 8.0 K/mm3 Today, 04:44 RBC, (4.6-6.2) 3.81 M/mm3 L Today, 04:44 Hgb, (13.0-16.5) 10.8 g/dL L Today, 04:44 Hct, (40-54) 34.2 % L Today, 04:44 Plt Count, (150-450) 144 K/mm3 L Today, 04:44 CHEMISTRY Potassium, (3.3-5.1) 4.5 mmol/L Today, 04:44 Sodium, (133-145) 144 mmol/L Today, 04:44 BUN, (4-19) 25 mg/dL H Today, 04:44 Creatinine, (0.70-1.20) 1.99 mg/dL H Today, 04:44 Glucose, (70-99) 129 mg/dL H Today, 04:44 POC Glucose, (74-106) 121 mg/dL H 04/25/25, 16:48 TSH, (0.358-3.74) 2.81 uIU/mL 04/28/22, 10:20 COAG PT, (11.7-14.9) 14.7 SECONDS Today, 04:44 Pre-Assessment Diagnosis/Proposed Procedure Planned Operative Procedure(s): EGD, colonoscopy. 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 When Was Last Pacemaker Check QUESTION #4 FULL TEXT: You/Your Family Experience fever (hyperthermia) with Anesthesia Last Oral Intake Last Oral intake: Last Oral Intake NPO since 00:00 04/26/25 06:00 Meds taken in AM with sips of No 04/26/25 06:00 water? Meds patient instructed to take am of surgery PONV PONV - administrative assistant office manager: PONV - administrative assistant office manager Female HX of Motion Sickness HX of N/V After Surgery Non-Smoker Duration of Surgery greater than 60 minutes Number of Risk Factors PONV Score Height & Weight Height & Weight: Anesthesia: Height & Weight Height 5 ft 9 in 04/26/25 06:00 Weight: 85 kg 04/26/25 06:00 Body Mass Index (BMI) 27.6 04/26/25 06:00 Respiratory Assessment Respiratory Assessment - administrative assistant office manager: Respiratory Tract Infection Hx - administrative assistant office manager Hx Respiratory Tract Infection No 04/26/25 06:00 STOP Sleep Apnea STOP Sleep Apnea - administrative assistant office manager: STOP Sleep Apnea - administrative assistant office manager Hx Hypertension Yes 04/25/25 16:40 Hx Sleep Apnea No 04/25/25 16:40 CPAP BIPAP Do you snore loudly (louder No 04/25/25 16:40 than talking or can be heard Do you often feel tired/ No 04/25/25 16:40 fatigued/ sleepy during daytime? Has anyone observed you stop No 04/25/25 16:40 breathing during sleep? STOP Results Negative 04/25/25 16:40 QUESTION #5 FULL TEXT : Do you snore loudly (louder than talking or can be heard through closed doors)? Tobacco Use History Tobacco Use History - administrative assistant office manager: Tobacco Use History - administrative assistant office manager Tobacco Use Smoking Status Former smoker 04/25/25 16:40 Hx Tobacco Use No 04/25/25 16:40 Years Smoking Packs Smoked per Day Smoking Cessation Date was No - quit smoking greater 04/25/25 16:40 within the last 15 years than 15 years ago Hx Smoking Cessation Date Hx Smoking Cessation Counseling Hematologic Medial History Hematologic Hx - administrative assistant office manager: Hematologic Medical Hx - sensor technician Hx of Blood Transfusion No 04/25/25 16:40 Hx of Transfusion in last 3 No 04/25/25 16:40 Months Date of Last Transfusion (if within last 3 months) Ever experience any problems No 04/25/25 16:40 with transfusion(s)? Specify any problems Hx of Preganancy in last 3 N/A 04/25/25 16:40 Months Nurse Filling Out Transfusion NBILANCIN 04/25/25 16:40 & Questions: Date: 04/25/25 04/25/25 16:40 Time: 16:59 04/25/25 16:40 Patient unable to answer at this time (ie. confused, unrespo /Reproduction History /Reproductive History - administrative assistant office manager: /Reproductive Hx- administrative assistant office manager Hx Now Gestational Age (in weeks): EDC: Hx Hx Para Hx Section SAB Does the father of the baby or his family experience fever w Father of the baby Malignant Hypertension history comment Active Medications Active Medications: Current Medications Generic Name Dose Route Start Last Admin Trade Name Freq PRN Reason Stop Dose Admin Acetaminophen 650 mg 04/25/25 16:39 Acetaminophen 325 Mg Tablet PO Q6H PRN PRN Pain 1-10 Or Fever>100.7 Atenolol 50 mg 04/25/25 22:00 04/25/25 20:17 Atenolol 50 Mg Tablet PO 50 mg QHS SAMY Administration Protocol Calamine/Phenol 1 applic 04/25/25 22:30 04/26/25 06:25 Menthol/Lanolin/Calamine/Znox 113 Gm Tube TOPICAL Not Given TID SAMY Protocol Glucagon 1 mg 04/25/25 16:39 Glucagon 1 Mg/Ml Syringe IM X1 PRN HYPOGLYCEMIA Protocol Dextrose 250 mls @ 0 mls/hr 04/25/25 16:39 Dextrose 10%-Water IV .Q0M PRN HYPOGLYCEMIA Protocol As Directed Pantoprazole Sodium 40 mg/ 100 mls @ 300 mls/hr 04/25/25 22:00 04/26/25 10:19 Sodium Chloride IV Infused Q12 SAMY Infusion Sodium Chloride 500 mls @ 15 mls/hr 04/25/25 17:03 IV PRN PRN Blood Transfusion Sodium Chloride 250 mls @ 15 mls/hr 04/25/25 17:03 IV .[id number] PRN Saline Flush Sodium Chloride 250 mls @ 15 mls/hr 04/25/25 17:03 IV .[id number] PRN Additional IVPB Infusion Lactated Ringer's 1,000 mls @ 15 mls/hr 04/26/25 10:15 IV .Q48H [facility] Insulin Human Lispro 0 unit 04/25/25 16:39 04/26/25 06:27 Insulin Lispro 100 Unit/Ml Insuln.Pen SC Not Given ACHS [facility] Protocol Ipratropium [place] 1 spray 04/25/25 22:00 04/26/25 09:50 Ipratropium [place] 0.06% Nasal [place] NASAL 1 spray BID SAMY Administration Lisinopril 40 mg 04/26/25 10:00 Lisinopril 40 Mg Tablet PO DAILY [facility] Protocol Ondansetron HCl 4 mg 04/25/25 16:39 Ondansetron 4 Mg/2 Ml Vial IV Q8H PRN PRN NAUSEA/VOMITING Simethicone 80 mg 04/25/25 16:39 Simethicone 80 Mg Chewable Tablet PO Q6H PRN abdominal distention Sodium Chloride 10 - 40 ml 04/25/25 17:03 0.9% Saline Lock 10 Ml Syringe IV UD PRN SALINE FLUSH Venlafaxine HCl 37.5 mg 04/26/25 10:00 Venlafaxine Xr 37.5 Mg Capsule PO DAILY [facility] PFSH Medical History Lung nodule Hyperlipidemia Hypertension Aortic aneurysm History of prostate cancer Past heart attack Rheumatic fever Home Medications ?Medication ?Instructions ?Recorded ?Last Taken ?Type aspirin 325 mg tablet,delayed 325 mg PO QHS 03/10/16 U nknown History release atenolol 50 mg tablet 50 mg PO QHS 03/10/16 Unknow n History atorvastatin 80 mg tablet 80 mg PO QHS 03/10/16 Unknow n History omeprazole 20 mg capsule,delayed 20 mg PO DAILY 03/12/16 04:30 History release cholecalciferol (vitamin D3) 50 50 mcg PO DAILY Unknown History mcg (2,000 unit) capsule (Vitamin D3) ipratropium bromide 21 mcg (0.03 2 spray intranasal BI D 07/14/24 Unknown History %) nasal spray simethicone 80 mg chewable tablet 80 mg PO Q6H PRN abd ominal 07/14/24 Unknown History (Gas Relief (simethicone)) distention vitamin E 200 unit capsule 180 mg PO DAILY 07/14/24 Un known History atezolizumab 1,200 mg/20 mL (60 mg IV 04/25/25 Unknown History mg/mL) intravenous solution bevacizumab 25 mg/mL intravenous mg 04/25/25 Unknown H istory solution (Avastin) enalapril maleate 20 mg tablet 40 mg PO DAILY 04/25/25 Unknown History glimepiride 4 mg tablet 8 mg PO DAILY 04/25/25 Unkno wn History venlafaxine 37.5 mg 37.5 mg PO DAILY 04/25/25 Un known History capsule,extended release 24 hr Allergy/AdvReac Type Severity Reaction Status Date / Time No Known Allergies Allergy Verified 04/25/25 13:10 Family History Father Heart disease Cancer Prostate Brother Heart disease Colon cancer Surgical History History of angioplasty Hx of kidney removal Social History Smoking Status: Former smoker Tobacco: How many years used: 30 how long ago did patient quit smokin Review of Systems (Anesthesia) ROS Narrative System reviewed and no additional complaints, except as documented.
[2025-04-26] MEDS: Lactated Ringers 1,000 ML 15 ML IV (10:23)
[2025-04-26 10:56] LABS: Hematocrit 35.7 % (40-54); Hemoglobin 11.4 g/dL (13.0-16.5)
--- NOTE | 2025-04-26 11:15 | EGD_PTH ---
PATIENT: ROSALBA W[place] LOC: [facility] U#:[id number] AGE/SX: 85/M ROOM: [facility] RE04/25/[address]: Dr. Alisson Dixon DO : 1940 BED: 1 DIS: 04/28/2025 SPEC #: [id number] RECD: 04/26/25 13:42 STATUS: SAMUEL REQ #: [id number] OLENA: 04/26/25 11:[address]: Yosef Werner DEPT: SURGICAL PATHOLOGY RECD BY: Yola Bass ENTERED: 04/27/25 08:49 SP TYPE: EGD BIOPSY OTHR DR: MD Dr. Stanley Lakhani DO Dr. Kathryn Lee, DO Dr. Prakash Chand, MD Dr. Rahsaan Friend, DO Heather Evans, NP-C Jamila Santana, SHOT LIGHTERTitoC HEATHER Ortez Tissues: A - Gastric mucous membrane B - Sigmoid colon biopsy C - Sigmoid colon biopsy D - Rectum, NOS Procedures: Surgery Specimen Level IV Comments: @ Ordering doctor for SUIV edited from to @ by NAVID at 05/02/25 1107 @ Submitting doctor edited from to @ by NAVID at 05/02/25 1107 HEADER OPERATION: Colonoscopy with polypectomy, Argon plasma coagulation, biopsy PRE-OP DIAGNOSIS: GI bleed TISSUE SUBMITTED: A- Gastric ulcer biopsy, B- Sigmoid polyp, C- Sigmoid biopsy, D- Rectal ulcer biopsy MICROSCOPIC DIAGNOSIS A. Stomach, ulcer, biopsies: - Pyloric mucosa with an area of reactive foveal hyperplasia adjacent to an area of atrophy with acute and chronic inflammation and a detached fibrinopurulent exudate, suggesting an ulcer B. Large intestine, sigmoid polyp: - Sessile polyp with artefactually distorted and superficially dilated crypts, suggesting an inflammatory polyp C. Large intestine, sigmoid: - Benign colonic mucosa without active inflammation or architectural distortion D. Rectum, ulcer: * Colonic mucosa with attached granulation tissue with an overlying fibrinopurulent exudate, consistent with an ulcer COMMENT Keya Pereira DO, has reviewed Part A and concurs with the diagnostic interpretation. MICROSCOPIC DESCRIPTION Slides are reviewed. GROSS DESCRIPTION A. Received in fixative is one container labeled with the patient's name and designated Gastric ulcer biopsy. The specimen consists of two irregular fragments of claros tissue that measure 0.3 and 0.5 cm. The specimen is totally submitted in one cassette. B. Received in fixative is one container labeled with the patient's name and designated Sigmoid polyp. The specimen consists of one irregular fragment of claros tissue that measures 0.3 cm. The specimen is totally submitted in one cassette. C. Received in fixative is one container labeled with the patient's name and designated Sigmoid biopsy. The specimen consists of two irregular fragments of claros tissue, each measuring 0.5 cm. The specimen is totally submitted in one cassette. D. Received in fixative is one container labeled with the patient's name and designated Rectal ulcer biopsy. The specimen consists of multiple irregular fragments of claros tissue that in aggregate measure 0.8 x 0.5 x 0.1 cm. The specimen is totally submitted in one cassette. LA 04/26/2025 CPT:40986q0
--- NOTE | 2025-04-26 13:39 | PCM.POST.ANE ---
Anesthesia: Postop Eval I Current Vital Signs Temperature: 98 F Pulse Rate: 64 Blood Pressure: 166/77 Respiratory Rate: 18 Pulse Ox: 95 Oxygen Delivery Method: Room Air Assessment Airway patent: Yes Spontaneous unlabored respirations: Yes Mental status: Awake and Calm nausea: No Vomiting: No Anesthesia Complication: No Fluid Hydration Crystalloid volume administer (ml): 400 Total IV fluid infused: 400 Progress Note Anesthesia document: Postop Eval 1 completed: Yes
--- NOTE | 2025-04-26 13:46 | POSTOPAN2_ITS ---
Anesthesia Postop Eval I Sum Postop Eval Completion status Anesthesia document: Postop Eval 1 completed: Yes Anesthesia Postop Eval I Summary Anesthesia Postop Eval I Summary: Anesthesia Postop Eval I: Assessment Summary Airway patent Yes 04/26/25 13:40 MAKE UP [email or web address].[email or web address] Spontaneous unlabored Yes 04/26/25 13:40 MAKE UP ARRANGER.FLORIN respirations Mental status Awake,Calm 04/26/25 13:40 MAKE UP ARRANGER.RUBYOBY nausea No 04/26/25 13:40 MAKE UP ARRANGER.RUBYOBY Vomiting No 04/26/25 13:40 MAKE UP ARRANGER.RUBYOBDamaris Anesthesia Postop Eval I: Fluid Summary Crystalloid volume administer 400 04/26/25 13:40 MAKE UP ARRANGER.SKOBY (ml) Colloids volume administered ( ml) Blood Product volume administered (ml) Total IV fluid infused 400 04/26/25 13:40 MAKE UP ARRANGER.FLORIN Anesthesia Postop Eval I: Summary Notes Anesthesia Complication No 04/26/25 13:40 MAKE UP ARRANGER.FLORIN Anesthesia Complication Comment: Post-operative progress note Anesthesia: Postop Eval II Evaluation Mental status: Awake Pain Level: 0 nausea: No Vomiting: No
--- NOTE | 2025-04-26 13:46 | PCM.POSTANE2 ---
Anesthesia Postop Eval I Sum Postop Eval Completion status Anesthesia document: Postop Eval 1 completed: Yes Anesthesia Postop Eval I Summary Anesthesia Postop Eval I Summary: Anesthesia Postop Eval I: Assessment Summary Airway patent Yes 04/26/25 13:40 RN [email or web address].[email or web address] Spontaneous unlabored Yes 04/26/25 13:40 RN TRANSITIONAL.FLORIN respirations Mental status Awake,Calm 04/26/25 13:40 RN TRANSITIONAL.RUBYOBY nausea No 04/26/25 13:40 RN TRANSITIONAL.RUBYOBY Vomiting No 04/26/25 13:40 RN TRANSITIONAL.RUBYOBDamaris Anesthesia Postop Eval I: Fluid Summary Crystalloid volume administer 400 04/26/25 13:40 RN TRANSITIONAL.SKOBY (ml) Colloids volume administered ( ml) Blood Product volume administered (ml) Total IV fluid infused 400 04/26/25 13:40 RN TRANSITIONAL.FLORIN Anesthesia Postop Eval I: Summary Notes Anesthesia Complication No 04/26/25 13:40 RN TRANSITIONAL.FLORIN Anesthesia Complication Comment: Post-operative progress note Anesthesia: Postop Eval II Evaluation Mental status: Awake Pain Level: 0 nausea: No Vomiting: No
--- NOTE | 2025-04-26 14:04 | OP.PROVAT_ITS ---
04/26/2025 Reddy Velazquez [address] [place] [address] Re : Upper GI endoscopy procedure for Hamilton Morocho Dear Dr. Velazquez This procedure was performed on Saturday, April 26, 2025. My impressions and recommendations are as follows: Impressions : - No gross lesions in the entire esophagus. - Oozing gastric ulcers with pigmented material. Treated with a heater probe. Biopsied. - No gross lesions in the entire examined duodenum. Recommendations : - Discharge patient to home. - Resume previous diet. - Continue present medications. - Await pathology results. - Repeat upper endoscopy in 3 months for surveillance. - Use Protonix (pantoprazole) 40 mg PO BID. My findings are described in the full procedure note, which is enclosed. If I can be of further assistance, please feel free to contact me at . Sincerely, Yosef Werner, 04/26/2025 2:03:34 PM This report has been signed electronically.
--- NOTE | 2025-04-26 14:04 | OP.EGD_ITS ---
Patient Name: Hamilton Morocho Procedure Date: 04/26/2025 12:28 PM Date of : 1940 Age: 85 Procedure: Upper GI endoscopy Indications: Iron deficiency anemia, Hematochezia, Melena Providers: Yosef Werner DO Medicines: Monitored Anesthesia Care Patient Profile: This is an 85 year old male. Refer to note in patient chart for documentation of history and physical. Patient has symptoms. Complications: No immediate complications. Procedure: Pre-Anesthesia Assessment: - Prior to the procedure, a History and Physical was performed, and patient medications and allergies were reviewed. The patient is competent. The risks and benefits of the procedure and the sedation options and risks were discussed with the patient. All questions were answered and informed consent was obtained. Patient identification and proposed procedure were verified by the physician in the pre-procedure area. Mental Status Examination: alert and oriented. Airway Examination: normal oropharyngeal airway and neck mobility. Respiratory Examination: clear to auscultation. CV Examination: normal. Prophylactic Antibiotics: The patient does not require prophylactic antibiotics. Prior Anticoagulants: The patient has taken no anticoagulant or antiplatelet agents. ASA Grade Assessment: II - A patient with mild systemic disease. After reviewing the risks and benefits, the patient was deemed in satisfactory condition to undergo the procedure. The anesthesia plan was to use monitored anesthesia care (MAC). Immediately prior to administration of medications, the patient was re-assessed for adequacy to receive sedatives. The heart rate, respiratory rate, oxygen saturations, blood pressure, adequacy of pulmonary ventilation, and response to care were monitored throughout the procedure. The physical status of the patient was re-assessed after the procedure. After obtaining informed consent, the endoscope was passed under direct vision. Throughout the procedure, the patient's blood pressure, pulse, and oxygen saturations were monitored continuously. The Colonoscope was introduced through the mouth, and advanced to the fourth part of the duodenum. Small bowel enteroscopy was deemed necessary. The upper GI endoscopy was accomplished without difficulty. The patient tolerated the procedure well. Scope In: 12:41:45 PM Scope Out: 12:45:49 PM Total Procedure Duration Time 0 hours 4 minutes 4 seconds Findings: No gross lesions were noted in the entire esophagus. Many oozing cratered gastric ulcers with pigmented material were found in the gastric antrum. The largest lesion was 6 mm in largest dimension. Coagulation for hemostasis using heater probe was successful. Biopsies were taken with a cold forceps for histology. Biopsies were taken with a cold forceps for Helicobacter pylori testing. Verification of patient identification for the specimen was done. Estimated blood loss was minimal. No gross lesions were noted in the entire examined duodenum. Impression: - No gross lesions in the entire esophagus. - Oozing gastric ulcers with pigmented material. Treated with a heater probe. Biopsied. - No gross lesions in the entire examined duodenum. Recommendation: - Discharge patient to home. - Resume previous diet. - Continue present medications. - Await pathology results. - Repeat upper endoscopy in 3 months for surveillance. - Use Protonix (pantoprazole) 40 mg PO BID. Procedure Code(s): --- Professional --- 69220, 59, Small intestinal endoscopy, enteroscopy beyond second portion of duodenum, not including ileum; with control of bleeding (eg, injection, bipolar cautery, unipolar cautery, laser, heater probe, stapler, plasma biology lecturer) 29769, 51, Small intestinal endoscopy, enteroscopy beyond second portion of duodenum, not including ileum; with biopsy, single or multiple CPT copyright 2021 [employer]. All rights reserved. The codes documented in this report are preliminary and upon economic consultant review may be revised to meet current compliance requirements. Yosef Werner DO 04/26/2025 2:03:34 PM This report has been signed electronically. Number of Addenda: 0 Note Initiated On: 04/26/2025 12:28 PM
--- NOTE | 2025-04-26 14:09 | OP.COLON_ITS ---
Patient Name: Hamilton Morocho Procedure Date: 04/26/2025 12:45 PM Date of : 1940 Age: 85 Procedure: Colonoscopy Indications: Hematochezia Providers: Yosef Werner DO Medicines: Monitored Anesthesia Care Patient Profile: This is an 85 year old male. Refer to note in patient chart for documentation of history and physical. Patient has symptoms. Last Colonoscopy: several years ago. Complications: No immediate complications. Procedure: Pre-Anesthesia Assessment: - Prior to the procedure, a History and Physical was performed, and patient medications and allergies were reviewed. The patient is competent. The risks and benefits of the procedure and the sedation options and risks were discussed with the patient. All questions were answered and informed consent was obtained. Patient identification and proposed procedure were verified by the physician in the pre-procedure area. Mental Status Examination: alert and oriented. Airway Examination: normal oropharyngeal airway and neck mobility. Respiratory Examination: clear to auscultation. CV Examination: normal. Prophylactic Antibiotics: The patient does not require prophylactic antibiotics. Prior Anticoagulants: The patient has taken no anticoagulant or antiplatelet agents. ASA Grade Assessment: II - A patient with mild systemic disease. After reviewing the risks and benefits, the patient was deemed in satisfactory condition to undergo the procedure. The anesthesia plan was to use monitored anesthesia care (MAC). Immediately prior to administration of medications, the patient was re-assessed for adequacy to receive sedatives. The heart rate, respiratory rate, oxygen saturations, blood pressure, adequacy of pulmonary ventilation, and response to care were monitored throughout the procedure. The physical status of the patient was re-assessed after the procedure. After I obtained informed consent, the scope was passed under direct vision. Throughout the procedure, the patient's blood pressure, pulse, and oxygen saturations were monitored continuously. The Colonoscope was introduced through the anus and advanced to the cecum, identified by appendiceal orifice and ileocecal valve. The colonoscopy was performed without difficulty. The patient tolerated the procedure well. The quality of the bowel preparation was adequate. The ileocecal valve, appendiceal orifice, and rectum were photographed. Scope In: 12:49:14 PM Scope Out: 1:23:00 PM Total Procedure Duration Time 0 hours 33 minutes 46 seconds Findings: The perianal and digital rectal examinations were normal. A 10 mm polyp was found in the sigmoid colon. The polyp was sessile. The polyp was removed with a hot snare. Resection and retrieval were complete. Verification of patient identification for the specimen was done. Estimated blood loss was minimal. A single (solitary) twenty mm ulcer was found in the rectum. Oozing was present. Stigmata of recent bleeding were present. Biopsies were taken with a cold forceps for histology. Verification of patient identification for the specimen was done. Coagulation for hemostasis using argon plasma at 0.9 liters/minute and 30 pritchett was successful. To repair the defect, the tissue edges were approximated and four hemostatic clips were successfully placed. Closure of the defect was successful. Clip evaporator: Mobovivo. There was no bleeding at the end of the procedure. Localized moderate inflammation characterized by altered vascularity, granularity and loss of vascularity was found in the recto-sigmoid colon and in the sigmoid colon. Biopsies were taken with a cold forceps for histology. Verification of patient identification for the specimen was done. Estimated blood loss was minimal. Impression: - One 10 mm polyp in the sigmoid colon, removed with a hot snare. Resected and retrieved. - A single (solitary) ulcer in the rectum. Biopsied. Treated with argon plasma coagulation (APC). Clips were placed. Clip evaporator: Mobovivo. Recommendation: - Discharge patient to home. - Resume previous diet. - Continue present medications. - Await pathology results. - Use original regular Metamucil one teaspoon PO daily. - No repeat colonoscopy due to age. Procedure Code(s): --- Professional --- 71082, 59, Colonoscopy, flexible; with control of bleeding, any method 92607, Colonoscopy, flexible; with removal of tumor(s), polyp(s), or other lesion(s) by snare technique 01418, 59, Colonoscopy, flexible; with biopsy, single or multiple CPT copyright 2021 [employer]. All rights reserved. The codes documented in this report are preliminary and upon biomass plant technician review may be revised to meet current compliance requirements. Yosef Werner DO 04/26/2025 2:08:34 PM This report has been signed electronically. Number of Addenda: 0 Note Initiated On: 04/26/2025 12:45 PM
--- NOTE | 2025-04-26 14:09 | OP.PROVAT_ITS ---
04/28/2025 Reddy Velazquez [address] [place] [address] Re : Colonoscopy procedure for Hamilton Morocho Dear Dr. Velazquez This procedure was performed on Saturday, April 26, 2025. My impressions and recommendations are as follows: Impressions : - One 10 mm polyp in the sigmoid colon, removed with a hot snare. Resected and retrieved. - A single (solitary) ulcer in the rectum. Biopsied. Treated with argon plasma coagulation (APC). Clips were placed. Clip technology advisor: Anyone Home. Recommendations : - Discharge patient to home. - Resume previous diet. - Continue present medications. - Await pathology results. - Use original regular Metamucil one teaspoon PO daily. - No repeat colonoscopy due to age. My findings are described in the full procedure note, which is enclosed. If I can be of further assistance, please feel free to contact me at . Sincerely, Yosef Werner, 04/26/2025 2:08:34 PM This report has been signed electronically.
--- NOTE | 2025-04-26 14:55 | CASEMGMT ---
RN CM Face to Face with patient for initial transition planning/care coordination assessment. RN CM introduced self and role at [facility]. Patient lying in bed, alert and oriented, daughter at bedside. Patient willing to participate in assessment and is able to answer all questions appropriately. Care providers, pharmacy, and demographics verified. Strata: 2 PCP: Caroline Specialists: Era, oncologist; Preferred Pharmacy: [facility] Insurance: [email or web address] [facility] Prescription Benefit: yes Living Will/HPOA: yes, daughter Stella Quiroz LNOK: daughter Living Arrangements: Patient lives alone in a single story condo with no steps to enter. Patient is independent at home. Transportation: Self, daughter DME/HHC: Patient has cane, walker, raised toilet, and shower chair at home. No previous HHC or SNF Patient wishes to discharge home, denies need for home health at this time. Patient states he has no further needs or concerns at this time. CM to follow for discharge planning needs that may arise. Disposition Plan: Patient to discharge home with family support and follow-up plans in place. Tawana HOLDEN, RN, CM
[2025-04-26] MEDS: 0.9% Saline Lock 10 ML Syringe IV (21:05)
[2025-04-27 03:00] VITALS: PULSE 60
[2025-04-27 03:18] VITALS: BP 110/66; PULSE 73; RESP 16; TEMP 36.5; O2SAT 97
[2025-04-27 06:32] LABS: Hematocrit 29.6 % (40-54); Hemoglobin 9.2 g/dL (13.0-16.5); Immature Granulocytes Count 0.020 X10^3/uL (0.0-0.0); Mean Corp Hgb Conc 31.1 g/dL (32-36); Mean Corpuscular Volume 91.4 fL (80-94); Mean Platelet Vol. 11.9 fl (6.2-12.0); NRBC Flagged by Analyzer 0 % (0-5); Platelet Count 123 K/mm3 (150-450); RBC Distribution Width CV 14.9 % (11.6-14.6); RBC Distribution Width SD 50.0 fl (35.1-43.9); Red Blood Count 3.24 M/mm3 (4.6-6.2); White Blood Count 7.4 K/mm3 (4.4-11.0)
[2025-04-27 06:58] LABS: Magnesium 2.1 mg/dL (1.5-2.2)
[2025-04-27 06:59] LABS: Anion Gap 10 (5-15); BUN 22 mg/dL (4-19); BUN/Creat Ratio 11.1 RATIO (10-20); Calcium,Total 8.7 mg/dL (7.6-11.0); Carbon Dioxide 20.4 mmol/L (21.0-32.0); Chloride 109 mmol/L (98-108); Estimated Creatinine Clearance 30.02 ml/min (50-250); Glucose 110 mg/dL (70-99); Potassium 4.2 mmol/L (3.3-5.1)
--- NOTE | 2025-04-27 07:55 | PN.HOSP_ITS ---
Reason for Visit Chief Complaint: GI bleed Subjective Subjective No issues overnight. Tolerating p.o. diet well. Anxious to go home yet. Awaiting physical therapy evaluation. Patient did have a fall last evening with no injury. He was trying to get out of bed independently after he been instructed to call somebody to help. He voiced understanding of needing help with moving. Objective Data Objective Data Vital Signs: Vital Signs Temp Pulse Resp BP Pulse Ox O2 Del Method 97.7 F L 73 16 110/66 97 Room Air 04/27/25 03:18 04/27/25 03:18 04/27/25 03:18 04/27/25 03:18 04/27/25 03:18 04/27/25 03:18 Oxygen Delivery Method Room Air Weight: 85 kg Body Mass Index (BMI) 27.6 Intake & Output: Intake and Output for Last 24 Hours 04/25/25 04/26/25 04/27/25 23:59 23:59 23:59 Intake Total 1300 / 1300 1800 / 1800 Output Total 1999 / 1999 200 / 200 Balance 1300 / 1300 -200 / -200 -200 / -200 Lab / Micro Data 04/27/25 12:42 04/27/25 05:49 Labs: Laboratory Results - last 24 hr 04/26/25 10:45: Hgb 11.4 L, Hct 35.7 L 04/26/25 16:06: POC Glucose 125 H 04/26/25 21:13: POC Glucose 133 H 04/27/25 05:49: WBC 7.4, RBC 3.24 L, Hgb 9.2 L, Hct 29.6 L, MCV 91.4, MCH 28.4, MCHC 31.1 L, RDW Std Deviation 50.0 H, RDW Coeff of Donnie 14.9 H, Plt Count 123 L, MPV 11.9, Immature Gran % (Auto) 0.300, Neut % (Auto) 58.4, Lymph % (Auto) 28.0, [place] % (Auto) 9.9, Eos % (Auto) 3.0, Baso % (Auto) 0.4, Absolute Neuts (auto) 4.3, Absolute Lymphs (auto) 2.07, Nucleated RBC % 0, Sodium 139, Potassium 4.2, Chloride 109 H, Carbon Dioxide 20.4 L, Anion Gap 10, BUN 22 H, Creatinine 1.98 H , Estim Creat Clear Calc 30.02 L, Est GFR (MDRD) Non-Af 33 L, BUN/Creatinine Ratio 11.1, Glucose 110 H, Calcium 8.7, Phosphorus 2.3 L, Magnesium 2.1 04/27/25 06:22: POC Glucose 108 H Physical Exam Const alert, oriented x3, no apparent distress, average body habitus and well nourished; Negative for healthy appearing Constitutional Narrative: elderly, white male, sitting up in bed, watching television, appears comfortable, nontoxic, daughter at bedside HEENT normocephalic, head/scalp atraumatic and moist oral mucous membranes HEENT Narrative: Mallampati 3, no thrush Eyes conjunctivae normal Eyes Narrative: No scleral icterus Resp normal respiratory effort, no retractions, no use of accessory muscles and clear to auscultation bilaterally Auscultation: Negative for crackles, rhonchi or wheezes Cardio regular rate, regular rhythm, S1 normal heart sound, S2 normal heart sound, no murmurs, no rub, no gallops and no clicks GI normal to inspection, nondistended, normoactive bowel sounds, soft to palpation and non-tender GI Narrative: Benign exam Extremity no clubbing, cyanosis or edema Extremity Narrative: 2+ pedal and radial pulses, nailbeds on upper extremities are slightly blue with no signs of acute hypoxia Neuro moves all extremities and no focal motor deficits Neuro Narrative: Generalized weakness noted with no specific focal deficits Speech: speech normal Psych affect normal Psych Narrative: Very talkative, interacts appropriately, very pleasant Assessment & Plan Assessment/Plan (1) Upper GI bleed: (2) Gastric peptic ulcer: (3) Colon polyps: (4) Acute blood loss anemia: PLAN: Plan UGIB 2/2 Gastric Ulcer - EGD showed many oozing gastric ulcers that were treated with heater probe and bx taken and path is pending -repeat endoscopy in 3 mos - hold ASA for 14 days-discussed with Dr. Werner - Continue Protonix 40 mg PO BID with plans for x 8 weeks then daily to follow - Carafate 4x daily for 6 weeks - Diet per GI - will need outpt f/u with GI within a month after discharge Rectal Ulcer with defect - Defect repaired with clip - treated with argon plasma coagulation - suspect related to XRT - Biopsies were taken and currently pending - Metamucil added per GI recommendations Acute iron deficiency anemia - Related to the above - Hemoglobin at baseline appears to run between 13 and 14 - hemoglobin did drop to 9.2 this morning which is down from 11.4 yesterday- repeat hemoglobin 6 hours later was stable at 10 so no concern for rebleeding at this time - No need for transfusion - Repeat lab in a.m. Acute thrombocytopenia - Suspect related to consumption from GI bleed - Remains mild but did slightly trend down-currently at 123,000 - Repeat lab in a.m. Hypophosphatemia - Replacement ordered with IV sodium Phos - Recheck in a.m. CKD stage IIIb-IV - Appears at his creatinine has slowly been worsening. - Most recent labs from August at which time his creatinine was 1.67 - 1.99 today with creatinine yesterday 1.98 - Serum creatinine remained stable at 1.98 today - Would recommend outpatient nephrology follow-up - Repeat lab in a.m. 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 Girard in the near future to discuss options CAD/essential hypertension/hyperlipidemia - Will continue to hold aspirin and keep on hold for 2 weeks after discharge - Continue home atenolol - Continue home atorvastatin - Continue home lisinopril DM-2 - Hold home glimepiride - Continue sliding scale - Accu-Cheks as ordered History of aortic aneurysm - Ongoing outpatient follow-up Depression - Continue home venlafaxine DVT prophylaxis - SCDs - No chemoprophylaxis due to bleeding CODE STATUS - Full code as was verified at the time of admission Charges/Coding Visit Charges Inpatient E&M: 10784 Subs Hosp L2
[2025-04-27 09:50] VITALS: BP 115/60; PULSE 71; RESP 16; TEMP 36.6; O2SAT 100
[2025-04-27] MEDS: Psyllium 1 PACKET PO (09:53)
[2025-04-27 12:51] LABS: Hemoglobin 10.0 g/dL (13.0-16.5)
--- NOTE | 2025-04-27 14:28 | CHAPLAIN ---
Type of Pastoral Visit _x__ Initial Visit ___ Follow-up Visit ___ On-call Visit ___ General Patient Visit ___ Spiritual Assessment ___ Family Conference ___ Bereavement ___ Rapid Response ___ Code Blue ___ Other (describe below) Pastoral Care Referral From _x__ Patient ___ Family ___ Nurse ___ Physician ___ Recycling Or Rubbish Collector ___ Medical Pathology Teacher ___ Other (describe below) Sacrament/Intervention _x__ Active listening ___ Anointing ___ Buddhism ___ Bereavement ___ Communion ___ Leah exploration ___ _x__ Life review ___ Prayer ___ Reconciliation ___ Sacrament of Sick ___ Supportive presence ___ Wedding ___ Other (describe below) Pastoral Comments patient and daughter are in the room; pt is talkative and explains his situation which he considers to be very good; pt believes that he is fine and will be returning home; daughter is very supportive and instructive to her father about the future; pt is and expresses his own grief with honest insights; pt denies needs
[2025-04-27] MEDS: Sodium Phosphate/Na Biphos 30 MMOL in 0.9% Normal Saline (250mL Bag) 250 ML 62.5 MMOL IV (15:29)
[2025-04-27 16:15] VITALS: BP 107/69; PULSE 86; RESP 16; TEMP 36.7; O2SAT 95
[2025-04-27] MEDS: 0.9% Saline Lock 10 ML Syringe IV ×2 (16:58→21:38)
[2025-04-27 19:00] VITALS: PULSE 84
[2025-04-27 21:36] VITALS: BP 133/68; PULSE 81; RESP 18; TEMP 36.9; O2SAT 96
[2025-04-28 03:00] VITALS: PULSE 65
[2025-04-28 04:07] VITALS: BP 120/85; PULSE 57; RESP 18; TEMP 36.7; O2SAT 94
[2025-04-28 08:41] LABS: Hematocrit 26.6 % (40-54); Hemoglobin 8.6 g/dL (13.0-16.5); Immature Granulocytes Count 0.020 X10^3/uL (0.0-0.0); Mean Corp Hgb Conc 32.3 g/dL (32-36); Mean Corpuscular Volume 89.9 fL (80-94); Mean Platelet Vol. 11.4 fl (6.2-12.0); NRBC Flagged by Analyzer 0 % (0-5); Platelet Count 125 K/mm3 (150-450); RBC Distribution Width CV 14.7 % (11.6-14.6); RBC Distribution Width SD 48.4 fl (35.1-43.9); Red Blood Count 2.96 M/mm3 (4.6-6.2); White Blood Count 6.5 K/mm3 (4.4-11.0)
[2025-04-28 09:25] VITALS: BP 106/83; PULSE 64; RESP 16; TEMP 36.6; O2SAT 97
[2025-04-28 09:25] LABS: Anion Gap 8 (5-15); BUN 22 mg/dL (4-19); BUN/Creat Ratio 11.6 RATIO (10-20); Calcium,Total 9.0 mg/dL (7.6-11.0); Carbon Dioxide 23.3 mmol/L (21.0-32.0); Chloride 109 mmol/L (98-108); Estimated Creatinine Clearance 31.78 ml/min (50-250); Glucose 160 mg/dL (70-99); Potassium 4.3 mmol/L (3.3-5.1)
[2025-04-28] MEDS: Psyllium 1 PACKET PO (09:29)
[2025-04-28 11:44] LABS: Hemoglobin 8.5 g/dL (13.0-16.5)
--- NOTE | 2025-04-28 14:08 | PCM.DC.SUM ---
Providers Date of Admission: 04/25/25 Date of Discharge: 04/28/25 Primary Care Physician: Dr. Anmol Velazquez MD Consultations 04/25/25 16:39 Consult: Gastroenterology Routine Consulting Provider: [facility] Reason for Consult: GI bleed EMERGENT Consult: No MD Notified: Yes Date Notified: 04/25/25 Time Notified: 15:40 Method of Notification: ED Physician Initiated Reason For Visit: GI BLEED Diagnosis Discharge Diagnosis (1) Upper GI bleed: Status: Acute Code(s): K92.2 - Gastrointestinal hemorrhage, unspecified (2) Gastric peptic ulcer: Status: Acute Code(s): K25.9 - Gastric ulcer, unspecified as acute or chronic, without hemorrhage or perforation (3) Colon polyps: Status: Acute Code(s): K63.5 - Polyp of colon (4) Acute blood loss anemia: Status: Acute Code(s): D62 - Acute posthemorrhagic anemia Medications at Discharge Home Medications aspirin 325 mg tablet,delayed release 325 mg PO QHS 03/10/16 Held on 04/28/25. Instructions: Resume on 05/13/25. atenolol 50 mg tablet 50 mg PO QHS 03/10/16 atorvastatin 80 mg tablet 80 mg PO QHS 03/10/16 cholecalciferol (vitamin D3) 50 mcg (2,000 unit) capsule (Vitamin D3) 50 mcg PO DAILY 06/26/22 ipratropium bromide 21 mcg (0.03 %) nasal spray 2 spray intranasal BID 07/14/24 simethicone 80 mg chewable tablet (Gas Relief (simethicone)) 80 mg PO Q6H PRN abdominal distention 07/14/24 atezolizumab 1,200 mg/20 mL (60 mg/mL) intravenous solution mg IV 04/25/25 Held on 04/28/25. Instructions: Discussed with Dr. Girard bevacizumab 25 mg/mL intravenous solution (Avastin) mg 04/25/25 Held on 04/28/25. Instructions: Discussed with Dr. Girard enalapril maleate 20 mg tablet 40 mg PO DAILY 04/25/25 glimepiride 4 mg tablet 8 mg PO DAILY 04/25/25 venlafaxine 37.5 mg capsule,extended release 24 hr 37.5 mg PO DAILY 04/25/25 pantoprazole 40 mg tablet,delayed release 40 mg PO BID #60 tabs 04/28/25 psyllium husk 3 gram oral powder packet (Daily Fiber (psyllium-aspartame)) 1 packet PO DAILY #0 ea 04/28/25 sucralfate 1 gram tablet 1 g PO 1HR_ACHS #168 tabs 04/28/25 Hospital Course Operations None Procedures Colonoscopy, EGD and EKG Summary of Care Provided Minutes Spent on Discharge: 40 Hospital Course: Mr. Morocho is an 85-year-old white male who presents emergency department at [facility] on 04/25/2024 with a chief complaint of rectal bleeding. He has a history of prostate hepatocellular carcinoma who is on immunotherapy at baseline and follows with Dr. Girard from an oncology's perspective. Patient complained of having voluminous blood clot and blood in his stool at which time he presented to the emergency department. He complained of shortness of breath with exertion and feeling weak and tired. Upon presentation his hemoglobin was found to be 12.2, however his baseline hemoglobin appears to run between 13 and 15. Hemoglobin dropped during hospital course and GI was consulted. He is on aspirin at baseline. He takes no other blood thinners. All of his other laboratory data was stable for his baseline organ dysfunction except for mild thrombocytopenia which was likely related to consumption from his acute bleeding. He was admitted to PCU. Aspirin was held. He was placed on IV Protonix twice daily and GI was consulted. Patient was prepped for colonoscopy and EGD and colonoscopy were done on 04/26/2025. EGD showed multiple oozing gastric ulcers. Biopsies were taking and pending at the time of discharge. There were no noted gross lesions in the entire esophagus and the gastric ulcers were treated with heater probe. Duodenum was normal. Repeat EGD was recommended in 3 months and he is to be on Protonix 40 mg p.o. twice daily for 8 weeks with likely transition to weekly depending on GI follow-up and Carafate for 6 weeks then Carafate is to discontinue. He is to hold his aspirin for the next 2 weeks. With regards to his colonoscopy, he was found to have 1 polyp that was 10 mm in the sigmoid colon which was removed with hot snare resected and retrieved. It was sent for biopsy. 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 It was treated with argon plasma coagulation and Endo Clip was placed. Patient was instructed to use Metamucil once daily to avoid constipation. Given the fact that we wanted to avoid constipation no iron was given to patient at discharge as he already has some baseline issues with constipation. Patient indicated that he does not want to go back on his immunotherapy and intends to follow-up as an outpatient with oncology to discuss further. No other medications were changed just at the time of discharge. His hemoglobin did trend down but seem to stabilized in the 8.0-9 range. I discussed the downtrend with GI and they felt it was all equilibration as patient was not having any acute bleeding and was feeling much improved overall. GI wants a follow-up CBC done on Thursday. I asked the patient to call GI office on Thursday and asked that that be ordered so he can obtain that lab study. He is also to schedule a follow-up appointment to see Dr. Werner within the next month. Repeat EGD was recommended in 3 months to reassess healing. Physical Occupational Therapy saw the patient as he had a brief fall trying to get out of bed independently and not calling anyone he had no injury. Physical therapy indicated he ambulated well and did not need any ongoing therapy at the time of discharge. Patient was able to be discharged home in stable condition on 04/28/2025. Prescriptions were sent to local pharmacy at the time of discharge. He is to follow-up with his primary care physician within the next week. Follow-up with oncology as scheduled. 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 Complication related to aspirin use Acute iron deficiency anemia Acute thrombocytopenia secondary to consumption Hypophosphatemia CKD stage IIIb-IV Prostate carcinoma Hepatocellular carcinoma CAD Essential hypertension Lipidemia DM-2 History of aortic aneurysm Depression History of tobacco abuse Physical Exam Const alert, oriented x3, no apparent distress, average body habitus, no limitations and well nourished; Negative for healthy appearing Constitutional Narrative: elderly, white male, sitting up in bed, watching television, appears comfortable, nontoxic, daughter at bedside, patient is very jovial General Appearance: cooperative, comfortable, well kempt and well developed Exam Limitations: no limitations Nutritional Appearance: overweight HEENT normocephalic, head/scalp atraumatic and moist oral mucous membranes HEENT Narrative: Moderate hearing loss, Mallampati is 2-3, no thrush Eyes Eyes Narrative: No scleral icterus, mild conjunctival pallor bilaterally Neck supple Neck Narrative: Trachea midline Resp normal respiratory effort, no retractions, no use of accessory muscles and clear to auscultation bilaterally Auscultation: Negative for crackles, rhonchi or wheezes Cardio regular rate, regular rhythm, S1 normal heart sound, S2 normal heart sound, no murmurs, no rub, no gallops and no clicks GI normal to inspection, nondistended, normoactive bowel sounds, soft to palpation and non-tender Extremity Extremity Narrative: Trace bilateral lower extremity edema, 2+ pedal and radial pulses, nailbeds on upper extremities are slightly blue with no signs of acute hypoxia Skin skin turgor normal and no jaundice Neuro moves all extremities and no focal motor deficits Neuro Narrative: Generalized weakness noted with no specific focal deficits Speech: speech normal Psych affect normal Psych Narrative: Very talkative, interacts appropriately, very pleasant Weight / BMI Weight Weight: 85 kg Body Mass Index (BMI) 27.6 ABG / Lab / Microbiology Data 04/28/25 11:35 04/28/25 08:27 Laboratory: Laboratory Results - last 24 hr 04/27/25 16:57: POC Glucose 147 H 04/27/25 21:40: POC Glucose 131 H 04/28/25 06:51: POC Glucose 165 H 04/28/25 08:27: WBC 6.5, RBC 2.96 L, Hgb 8.6 L, Hct 26.6 L, MCV 89.9, MCH 29.1, MCHC 32.3, RDW Std Deviation 48.4 H, RDW Coeff of Donnie 14.7 H, Plt Count 125 L, MPV 11.4, Immature Gran % (Auto) 0.300, Neut % (Auto) 58.8, Lymph % (Auto) 27.3, [place] % (Auto) 10.2 H, Eos % (Auto) 3.1, Baso % (Auto) 0.3, Absolute Neuts (auto) 3.8, Absolute Lymphs (auto) 1.77, Nucleated RBC % 0, Sodium 141, Potassium 4.3, Chloride 109 H, Carbon Dioxide 23.3, Anion Gap 8, BUN 22 H, Creatinine 1.87 H, Estim Creat Clear Calc 31.78 L, Est GFR (MDRD) Non-Af 35 L, BUN/Creatinine Ratio 11.6, Glucose 160 H, Calcium 9.0, Phosphorus 2.9 04/28/25 11:35: Hgb 8.5 L 04/28/25 12:00: POC Glucose 173 H D/C Instructions Discharge Activity: Return to Normal Activity DC O2, CPAP, BIPAP Needs Home O2 Discharge instructions: No DC home with Oxygen: No Meaningful Use Info Meaningful Use Meaningful Use Diagnoses (Choose all that apply): None applicable Discharge Plan Admission Admit Date/Time: 04/25/25 15:37 Primary Reason for Your Visit: Rectal bleeding Attending Provider: Alisson Dixon Primary Care Provider: Anmol Velazquez Consulting Providers: Naseem Peraza; Yosef Werner; Jocelyne Morley; Jamila Santana; Petty Welch; Stanley Torres Instructions Additional Instructions / Restrictions: 1. Please take Carafate and Protonix as prescribed 2. Please call Dr. Werner's office on Thursday and tell them that Dr. Werner wanted you to have a complete blood count ordered for Thursday to recheck your blood count 3. Hold aspirin until instructed to restart on discharge paperwork 4. Also on Thursday when you call Dr. Werner's office asked that an appointment be scheduled as directed below 5. We will also hold vitamin EE for now as this increases your risk of bleeding Discharge Orders/Prescriptions Prescriptions: New sucralfate 1 gram Tablet 1 g PO 1HR_ACHS Qty: 168 0RF pantoprazole 40 mg Tablet,Delayed Release (Dr/Ec) 40 mg PO BID Qty: 60 1RF Daily Fiber (psyllium-aspart) 3 gram Powder In Packet 1 packet PO DAILY Qty: 0 0RF Continued atorvastatin 80 MG tablet 80 mg PO QHS atenolol 50 MG tablet 50 mg PO QHS cholecalciferol (vitamin D3) [Vitamin D3] 50 mcg (2,000 unit) Capsule 50 mcg PO DAILY simethicone [Gas Relief (simethicone)] 80 mg tablet,chewable 80 mg PO Q6H PRN (Reason: abdominal distention) Rx Instructions: after meals ipratropium bromide 21 mcg (0.03 %) spray,non-aerosol 2 spray intranasal BID Rx Instructions: administer into each nostril enalapril maleate 20 mg tablet 40 mg PO DAILY Patient Comments: [NO ORIGINAL SIG] venlafaxine 37.5 mg capsule,extended release 24hr 37.5 mg PO DAILY glimepiride 4 mg tablet 8 mg PO DAILY Held aspirin 325 MG tablet 325 mg PO QHS Hold Instructions: Resume on 05/13/25. atezolizumab 1,200 mg/20 mL (60 mg/mL) solution IV Hold Instructions: Discussed with Dr. Girard Avastin 25 mg/mL solution Hold Instructions: Discussed with Dr. Girard Discontinued omeprazole 20 MG capsule 20 mg PO DAILY Rx Instructions: Thursday,Thursday,Thursday vitamin E 200 unit capsule 180 mg PO DAILY Referrals / Follow Up: Anmol Velazquez MD [Primary Care Provider, Family Practice] - Within 1 Week Yosef Werner DO [Med Staff - Active Staff, Gastroenterology] - Within 1 Month Referral Note: Call Thursday to set up an appointment Disposition Disposition (needs filled in before D/C Order can be placed): Home, Self Care Charges/Coding Visit Charges Inpatient E&M: 97781 Disch Hosp >30min
[2025-04-28 14:26] VITALS: BP 110/80; PULSE 60; RESP 16; TEMP 36.8; O2SAT 96
--- NOTE | 2025-04-28 14:26 | CASEMGMT ---
Patient has order for discharge. RN CM in to discuss needs at discharge, daughter at bedside. Patient and daughter deny needs or help at discharge. Patient had no further questions or concerns.
--- NOTE | 2025-04-28 19:20 | PN_ITS ---
Progress Note Patient not had any more signs of lower GI bleeding. He is tolerating a diet. He did have 1 bowel without any blood. Physical Exam Const alert, oriented x3, no apparent distress and healthy appearing General Appearance: cooperative GI normal to inspection, nondistended, normoactive bowel sounds, soft to palpation, non-tender and non-distended Percussion: normal to percussion Rectal Exam: deferred Assessment & Plan Assessment/Plan (1) Upper GI bleed: (2) Gastric peptic ulcer: (3) Colon polyps: (4) Acute blood loss anemia: PLAN: Plan ?Assessment * Acute UGIB 2/2 Gastric Ulcers:?Patient stable following endoscopic treatment (heater probe, clipping/APC for rectal ulcer). Hemoglobin trending up/stable. No signs of rebleeding. Biopsy pathology pending for both sites. * Acute Iron Deficiency Anemia:?Secondary to GI bleeding. Stable at Hgb 10. * Acute Thrombocytopenia (mild):?Likely consumption coagulopathy related to recent bleed. Platelet count remains stable/mildly down. Plan * GI Management: * Medications: * Continue Protonix 40 mg BID x 8 weeks, then daily. * Carafate 4x daily for 6 weeks. * Metamucil 1x daily (for rectal ulcer management/bowel regimen). * Diet per GI recommendations. * Hold Aspirin (ASA) for 14 days (discussed with Dr. Werner). * Outpatient follow-up with GI specialist within one month after discharge. * Repeat endoscopy in 3 months. * Labs: * Repeat Hgb and platelet count in the morning (a.m.). * * Portions of this note were generated using voice recognition software ([employer]ictation). I have reviewed the contents and every effort has been made to ensure accuracy; however, inadvertent errors in grammar, spelling, punctuation, or word choice may occur, that were not noted before signing the document and should not alter the intended clinical meaning. Visit Charges Inpatient E&M: 83355 [facility] Hosp L3
--- NOTE | 2025-04-28 19:20 | PCM.PN.BLA ---
Progress Note Patient not had any more signs of lower GI bleeding. He is tolerating a diet. He did have 1 bowel without any blood. Physical Exam Const alert, oriented x3, no apparent distress and healthy appearing General Appearance: cooperative GI normal to inspection, nondistended, normoactive bowel sounds, soft to palpation, non-tender and non-distended Percussion: normal to percussion Rectal Exam: deferred Assessment & Plan Assessment/Plan (1) Upper GI bleed: (2) Gastric peptic ulcer: (3) Colon polyps: (4) Acute blood loss anemia: PLAN: Plan ?Assessment Acute UGIB 2/2 Gastric Ulcers:?Patient stable following endoscopic treatment (heater probe, clipping/APC for rectal ulcer). Hemoglobin trending up/stable. No signs of rebleeding. Biopsy pathology pending for both sites. Acute Iron Deficiency Anemia:?Secondary to GI bleeding. Stable at Hgb 10. Acute Thrombocytopenia (mild):?Likely consumption coagulopathy related to recent bleed. Platelet count remains stable/mildly down. Plan GI Management: Medications: Continue Protonix 40 mg BID x 8 weeks, then daily. Carafate 4x daily for 6 weeks. Metamucil 1x daily (for rectal ulcer management/bowel regimen). Diet per GI recommendations. Hold Aspirin (ASA) for 14 days (discussed with Dr. Werner). Outpatient follow-up with GI specialist within one month after discharge. Repeat endoscopy in 3 months. Labs: Repeat Hgb and platelet count in the morning (a.m.). Portions of this note were generated using voice recognition software ([employer] Dictation). I have reviewed the contents and every effort has been made to ensure accuracy; however, inadvertent errors in grammar, spelling, punctuation, or word choice may occur, that were not noted before signing the document and should not alter the intended clinical meaning. Visit Charges Inpatient E&M: 81577 Subs Hosp L3
== END 2025-04-28 15:34 | disposition home or self-care (01) | DRG 393 ==
LOC: ED 15:40 → PCU 16:01
PROVIDERS: Anesthesiology; Internal Medicine Gastroenterology; Emergency Provider Emergency Medicine; PCP Family Medicine; Visit Provider Internal Medicine
PROC: 0DJD8ZZ Inspection of Lower Intestinal Tract, Via Natural or Artificial Opening Endoscopic (ICD-10-PCS; CPT 45378; principal; 2025-04-26 11:10)
DX: K62.6 Ulcer of anus and rectum (principal); K25.4 Chronic or unspecified gastric ulcer with hemorrhage; D68.32 Hemorrhagic disorder due to extrinsic circulating anticoagulants; C22.0 Liver cell carcinoma; D62 Acute posthemorrhagic anemia; E83.39 Other disorders of phosphorus metabolism; C61 Malignant neoplasm of prostate; D50.9 Iron deficiency anemia, unspecified; D69.59 Other secondary thrombocytopenia; E11.22 Type 2 diabetes mellitus with diabetic chronic kidney disease; N18.32 Chronic kidney disease, stage 3b; I12.9 Hypertensive chronic kidney disease with stage 1 through stage 4 chronic kidney disease, or unspecified chronic kidney disease; F32.A Depression, unspecified; I25.10 Atherosclerotic heart disease of native coronary artery without angina pectoris; E78.5 Hyperlipidemia, unspecified; I25.2 Old myocardial infarction; K63.5 Polyp of colon; Z79.84 Long term (current) use of oral hypoglycemic drugs; Z87.891 Personal history of nicotine dependence; Z80.0 Family history of malignant neoplasm of digestive organs; Z79.899 Other long term (current) drug therapy
CPT/HCPCS: 36415; 80048; 80053; 80076; 82962; 83036; 83735; 84100; 85014; 85018; 85025; 85610; 85730; 86850; 86900; 86901; 88305; 93005; 97162; 97166; 97802; 97803; 99285; C1889; A4216; J2405

== ENCOUNTER → 2025-05-01 | Outpatient (CLI) | payer MEDICARE, SELFPAY ==
[2025-05-01 12:40] LABS: Hematocrit 30.8 % (40-54); Hemoglobin 9.9 g/dL (13.0-16.5); Immature Granulocytes Count 0.030 X10^3/uL (0.0-0.0); Mean Corp Hgb Conc 32.1 g/dL (32-36); Mean Corpuscular Volume 89.3 fL (80-94); Mean Platelet Vol. 11.4 fl (6.2-12.0); NRBC Flagged by Analyzer 0 % (0-5); Platelet Count 210 K/mm3 (150-450); RBC Distribution Width CV 15.0 % (11.6-14.6); RBC Distribution Width SD 47.8 fl (35.1-43.9); Red Blood Count 3.45 M/mm3 (4.6-6.2); White Blood Count 8.0 K/mm3 (4.4-11.0)
== END | disposition home or self-care (01) ==
LOC: LAB 11:36
PROVIDERS: PCP Family Medicine; Referring Provider Internal Medicine Gastroenterology; Visit Provider Internal Medicine Gastroenterology
DX: D62 Acute posthemorrhagic anemia (principal); K92.2 Gastrointestinal hemorrhage, unspecified
CPT/HCPCS: 36415; 85025

== ENCOUNTER → 2025-05-11 | Outpatient (CLI) | payer MEDICARE, SELFPAY ==
[2025-05-11 09:23] LABS: Hematocrit 33.6 % (40-54); Hemoglobin 10.4 g/dL (13.0-16.5); Immature Granulocytes Count 0.030 X10^3/uL (0.0-0.0); Mean Corp Hgb Conc 31.0 g/dL (32-36); Mean Corpuscular Volume 89.8 fL (80-94); Mean Platelet Vol. 11.1 fl (6.2-12.0); NRBC Flagged by Analyzer 0 % (0-5); Platelet Count 244 K/mm3 (150-450); RBC Distribution Width CV 14.7 % (11.6-14.6); RBC Distribution Width SD 48.3 fl (35.1-43.9); Red Blood Count 3.74 M/mm3 (4.6-6.2); White Blood Count 8.4 K/mm3 (4.4-11.0)
[2025-05-11 09:56] LABS: AST(SGOT) 18 U/L (<=37); Alanine Aminotransfer ALT/SGPT 11 U/L (<=46); Albumin, Serum 4.0 g/dL (3.4-4.8); Alkaline Phosphatase 125 U/L (40-129); Anion Gap 13 (5-15); BUN 31 mg/dL (4-19); BUN/Creat Ratio 15.5 RATIO (10-20); Calcium,Total 10.6 mg/dL (7.6-11.0); Carbon Dioxide 21.2 mmol/L (21.0-32.0); Chloride 104 mmol/L (98-108); Globulin 3.0 g/dL (2.2-4.2); Glucose 184 mg/dL (70-99); Potassium 4.3 mmol/L (3.3-5.1)
== END | disposition home or self-care (01) ==
LOC: LAB 08:17
PROVIDERS: Student in an Organized Health Care Education/Training Program; PCP Family Medicine; Referring Provider Internal Medicine Gastroenterology; Visit Provider Internal Medicine Gastroenterology
DX: D64.9 Anemia, unspecified (principal); D62 Acute posthemorrhagic anemia
CPT/HCPCS: 36415; 80053; 85025